=== PATIENT | male | born 1950 | race Caucasian/White ===

== ENCOUNTER 2019-03-26 12:37 | Inpatient (IN) ==
--- NOTE | 2019-03-26 15:49 | Cardiology Consult Note ---
Date of Encounter: 03/26/19 Time of Encounter: 15:46 Assessment and Plan (1) NSTEMI (non-ST elevated myocardial infarction) Current Visit: Yes Status: Acute Non-ST elevation myocardial infarction the setting of decompensated congestive heart failure possibly ischemic in origin. In the setting of history of coronary artery disease I do believe an LHC is reasonable once patient is euvolemic and stable. We will continue gentle diuresis and start the patient on IV heparin per ACS protocol. We will also try to obtain records of previous PCI's from outside hospital. EKG shows nonspecific changes. Will obtain echocardiogram to evaluate for structural heart abnormalities. Discussion w patient/family: The assessment and plan as outlined above was discussed with the patient and/or family members who expressed understanding and agreement. All questions were answered. Thank you for involving us in the care of your patient. Please call with any questions. History of Present Illness Consult date: 03/26/19 Consult reason: Chest Pain Chief complaint: Cant breath History of present illness: Mr. Sepulveda is a 68 year old male with multiple cardiac risk factors and comorbidities presents to the outside hospital with chest pain after significant shortness of breath and a feeling of unwellness. Patient apparently quit smoking for a few days in binged on nicotine smoking a full pack and a very short period of time states felt bad after that until he arrived to the emergency department. He describes significant shortness of breath above his baseline after smoking a full pack of cigarettes with some chest tightness. There is left pectoral type chest pain nonradiating without any associated symptoms. This improved and resolved upon receiving a breathing treatment which also helped his hypoxemia improve currently on room air patient's at 82%. Patient has an elevated BNP noted on an outside hospital of 2500 as well as a troponin of 2.5 otherwise unremarkable labs. He has a history of previous TX and 4 stents at an outside hospital. Currently he is resting comfortably denies any chest pain, shortness breath, dyspnea on exertion, orthopnea, PND, presyncope or syncope Past Med Surg Social Fam HX - Past Medical History Medical history: CHF, COPD, coronary artery disease, hyperlipidemia, hypertension Psychiatric history: anxiety - Past Surgical History Surgical History: no surgical history - Social History Smoking Status: Current every day smoker Smokeless Tobacco Status: No Alcohol use: rarely Drug use: none Medications and Allergies Allergy/AdvReac Type Severity Reaction Status Date / Time codeine Allergy Swelling Verified 03/05/19 11:15 of the Eye All Systems Review: The remainder of the systems were reviewed and are negative Physical Examination Vital Signs, Last 4 Hours Pulse Resp BP Pulse Ox 03/26/19 15:00 53 03/26/19 14:00 52 22 157/77 93 03/26/19 13:56 18 92 General: Conversant, No Apparent Distress HEENT: Atraumatic, Normocephaly, Mucus Membranes Moist Neck: No JVD, Normal carotid pulses Cardiac: Reg Rate and Rhythm, Normal S1 and S2, No Murmur Lungs: Normal Breath Sounds (Diminished air entry bibasilar), No Wheeze, Rales, Rhonchi Neuro: Alert and responsive, No focal deficits noted Abdomen: Soft, Non-Tender Skin: No rashes noted on visualized skin Musculoskeletal: No Chest Wall Tenderness Extremities: No Clubbing, No Cyanosis, No Edema, Normal Pulses Consult Discharge Plan - Plan Referrals: NONE,PCP [Primary Care Provider] -
[2019-03-26] MEDS ORDERED: *HR* Heparin 5,000 UNIT/ML VIAL IVP PRN (16:10)
--- NOTE | 2019-03-26 16:29 | Internal Med History&Physical ---
<Chrystal Pollock - Last Filed: 03/26/19 18:19> Date of Encounter: 03/26/19 Internal Medicine - H&P: HPI History of present illness: Mr. Sepulveda is a 68 year old male Internal Medicine - H&P: Meds ALPRAZolam [Xanax 1 MG Tablet] 1 mg PO TID PRN 03/26/19 [History] Amlodipine Besylate 10 mg PO DAILY 03/26/19 [History] Atenolol [Tenormin] 50 mg PO BID 03/26/19 [History] Cilostazol [Pletal] 100 mg PO BID 03/26/19 [History] Lisinopril [Zestril] 20 mg PO DAILY 03/26/19 [History] Rosuvastatin Calcium 40 mg PO DAILY 03/26/19 [History] Allergy/AdvReac Type Severity Reaction Status Date / Time codeine Allergy Swelling Verified 03/26/19 17:13 of the Eye All Systems PM: A 10-system review of systems was performed and is negative for pertinent findings except as documented above in the HPI. - Constitutional Vitals: Temp Pulse Resp BP Pulse Ox 97.5 F L 48 15 150/76 93 03/26/19 16:00 03/26/19 17:26 03/26/19 17:26 03/26/19 17:26 03/26/19 17:26 Internal Med - H&P Results - Labs CBC & Chem 7: 03/26/19 16:31 03/26/19 16:30 Labs: Short CBC 03/26/19 Range/Units 16:31 WBC 7.6 (4.3-11.1) K/mcL Hgb 16.4 (12.9-16.9) g/dL Hct 52.5 H (37.5-50.1) % Plt Count 131 L (140-400) K/mcL Neutrophils # 6.8 (1.6-8.9) K/mcL BMP 03/26/19 16:30 Sodium 139 Potassium 4.4 Chloride 99 Carbon Dioxide 33 H BUN 15 Creatinine 0.78 Glucose 172 H Calcium 8.9 Cardiac Enzymes 03/26/19 Range/Units 16:30 Troponin I 0.87 H* (< 0.04) ng/mL - Time Spent With Patient Total time spent is greater than 50% in coordination of care (as documented) at patient's floor/unit and/or counseling patient: - Attending Attestation I examined this patient and my medical decision-making was reviewed with the Resident Physician. I agree with the documented findings, disposition and treatment plan as described except to the extent set forth below. Family history reviewed and non-contributory. <Espino,Faraaz - Last Filed: 03/26/19 19:57> Date of Encounter: 03/26/19 Time of Encounter: 16:29 Internal Medicine - H&P: HPI Chief complaint: Chest Tightness Admitted From: Hospital to Hospital Transfer Plans for Post Hospital Care: Home History of present illness: Mr. Sepulveda is a 68 year old male with past medical history significant for CHF, CAD status post 4 stents, COPD, hypertension, hyperlipidemia who presents today complaining of substernal chest pain that began early this morning. Patient notes that early this morning he started feeling severe chest pain in the center of his chest "right where his heart sits at" and shortness of breath. Notes the pain did not radiate to his arm to his next to his jaw. He denied any headache, blurry vision, palpitations associated with chest pain. States that he has not felt anything similar to this in a long time. He does have a history of 2 heart attacks in 1998 and 2000, and received 2 stents in 1998 and 2 stents in 2000. Notes that he did take Plavix for 10 years, but was taken off by his PCP. Patient initially presented to [facility] emergency department. On arrival, patient was complaining of shortness of breath and chest pain. - Initial vitals showed BP = 192/93, temp = 98.7, HR = 96, respirations = 30. Initial oxygen saturation = 54%. Patient was immediately placed on nonrebreather mask at 15 L. - Initial troponin = 2.063. EKG did show T-wave inversions in lead 2, 3, aVF - BNP = 2925 - D-dimer = 2513 - Labwork otherwise within normal limits - Patient was given Solu-Medrol, duo nebs, kept on 15 L nonrebreather mask for COPD exacerbation. Patient was started on heparin drip due to NSTEMI. He was also given dose of IV Lasix to lower extremity swelling. At time of my examination, patient is resting comfortably at bedside in no acute distress. States that he currently does not have any chest pain, and he is breathing comfortably on BiPAP. Vitals stable. Oxygen saturation appropriate on BiPAP. Patient will be admitted to hospitalist service. Plan for left heart catheterization tomorrow morning. PCP: Dr. Rudd (Anita) Past Med Surg Social Fam HX - Past Medical History Attestation: Yes The following information was validated with the patient. Source: patient, old records reviewed Medical history: CHF, COPD, coronary artery disease, hyperlipidemia, hyp ertension Psychiatric history: anxiety - Past Surgical History Surgical History: no surgical history, other Additional surgical history: History of left heart catheterization in the past with 4 stents placed - Social History Smoking Status: Current every day smoker Smokeless Tobacco Status: No Alcohol use: rarely Drug use: none All Systems PM: A 10-system review of systems was performed and is negative for pertinent findings except as documented above in the HPI. - Constitutional Constitutional: fatigue, lethargy, malaise, no anorexia, no chills, no fever(s), no falls, no night sweats, no weakness, no weight gain, no weight loss - EENT Eyes: no blurry vision, no change in vision, no photophobia Nose, mouth and throat: no dysphagia, no facial pain, no neck pain - Cardiovascular Cardiovascular ROS IM: chest pain, edema, no diaphoresis, no dyspnea, no irregular heart rhythm, no lightheadedness, no palpitations, no syncope - Respiratory Respiratory: dyspnea, wheezing, no cough, no chest congestion - Gastrointestinal Gastrointestinal: bloating, no abdominal pain, no constipation, no diarrhea, no heartburn, no loose stools, no melena, no nausea, no vomiting - Genitourinary Genitourinary ROS male: no dysuria - Musculoskeletal Musculoskeletal ROS IM: no arthralgias, no neck pain, no numbness, no tingling - Integumentary Integumentary IM: no rash - Neurological Neurological ROS: no confusion, no dizziness, no headache(s), no loss of vision, no memory loss, no numbness, no paresthesias, no tingling, no weakness - Psychiatric Psychiatric: anxiety, no behavioral changes, no confusion, no depression - Endocrine Endocrine IM: fatigue - Hematologic/Lymphatic Hematologic/Lymphatic: no easy bleeding, no easy bruising - Constitutional Vitals: Temp Pulse Resp BP Pulse Ox 97.5 F L 49 14 150/76 93 03/26/19 16:00 03/26/19 16:00 03/26/19 16:00 03/26/19 16:00 03/26/19 16:00 General appearance: Present: cooperative, A&O X 3, pleasant, obese, answers questions appropriately Exam: Pleasant appearing 68-year-old male resting comfortably at bedside on BiPAP in no acute distress - Head Head exam: Present: atraumatic, normal inspection, normocephalic - Eye Eye exam: Present: EOMI - ENT ENT exam: Present: mucous membranes moist, normal exam - Neck Neck exam general surgery: Present: full ROM, normal inspection, supple, trachea midline - Respiratory Respiratory exam: Present: prolonged expiratory phase, wheezes. Absent: rales, respiratory distress, rhonchi, stridor Additional comments: Diffuse bilateral expiratory wheezes - Cardiovascular Cardiovascular exam: Present: bradycardia, +S1, +S2. Absent: irregular rhythm, systolic murmur - GI/Abdominal GI/Abdominal exam: Present: distended, normal bowel sounds, soft, no peritoneal signs. Absent: firm, guarding, rebound, rigid - Extremities Exam Extremities exam: Present: full ROM, normal capillary refill, normal inspection, pedal edema, warm, radial pulses palpable and symmetrical. Absent: tenderness Additional comments: 1+ pedal edema bilaterally - Neurological Exam Neurological exam: Present: alert, CN II-XII intact, oriented X3, no focal deficits - Psychiatric Psychiatric exam: Present: normal affect, normal mood Internal Med - H&P Results - Labs CBC & Chem 7: 03/26/19 16:31 03/26/19 16:30 - Assessment and Plan (1) NSTEMI (non-ST elevated myocardial infarction) Current Visit: Yes Status: Acute Assessment and plan: Mr. Sepulveda is a 68 year old male with past medical history significant for CHF, CAD status post 4 stents, COPD, hypertension, hyperlipidemia who presents today complaining of substernal chest pain that began early this morning. - Pain was nonradiating, and associated with shortness of breath - History of 4 stents placed about 20 years ago; currently not on any anticoagulation - Initial vitals in the ED were notable for significantly elevated blood pressure, respirations = 30 respiratory, initial oxygen saturation = 54%. Patient was immediately started on 15 L nonrebreather mask - Troponin = 2.063 - EKG = T wave inversions noted in lead 2 and 3 and aVF - BNP = 2925 - D-dimer = 2513 - Patient was given dose of aspirin and started on heparin drip - Repeat troponin = 0.87 => trending downward PLAN: - Cardiology is on board. Recommendations are appreciated - Plan for left heart catheterization tomorrow morning - Continue heparin drip - Troponins trending downward. We will stop trending at this time - Follow up echocardiogram - We will restart home hypertension and hyperlipidemia medications - Continue to monitor for signs and symptoms of chest pain - Continuous cardiac monitoring, monitoring of O2 saturation, monitoring of vital signs - Cardiac diet; patient will be nothing by mouth at midnight prior to procedure tomorrow (2) COPD exacerbation Current Visit: Yes Status: Acute Assessment and plan: Patient has history of COPD - Pulmonary function tests done on 03/05/19 showed obstructive pattern - Additionally patient has never day smoker - States that he does use an inhaler at home, but does not remember which - Otherwise is not on home oxygen - Initial presentation in the ED at [facility] emergency department, showed patient with O2 saturation = 54%. Patient was immediately started on 15 L nonreb reather mask. O2 saturation improved. - Patient additionally given 125 mg of Solu-Medrol and DuoNeb breathing treatment - Patient currently resting comfortably on BiPAP. O2 sats are appropriate. - Patient noted to have diffuse bilateral wheezes on exam. No rales, rhonchi noted. PLAN: - We will continue with Solu-Medrol 40 mg twice a day - Continue DuoNeb's every 6 hours - Monitor O2 saturation; monitor for worsening respiratory distress - Continue with BiPAP when necessary and overnight - Encourage smoking cessation (3) Congestive heart failure Current Visit: Yes Status: Acute Assessment and plan: Patient notes history of CHF - Has history of 2 MIs in the past status post 4 stents - No recent echocardiogram within our records. We will repeat echocardiogram - Notes bilateral lower extremity edema - BNP = 2925 - Given dose of Lasix at [facility] ED PLAN: - Cardiology on board. Appreciate recommendations - Follow up repeat echocardiogram - Plan for Lasix 40 mg IV push twice a day - Monitor urine output - Strict ins and outs - Daily weights Qualifiers: Heart failure type: unspecified Heart failure chronicity: unspecified Qualified Code(s): I50.9 - Heart failure, unspecified (4) Hypertension Current Visit: Yes Status: Acute Assessment and plan: Patient has history of hypertension, managed with amlodipine and atenolol - BP is elevated on presentation - However heart rates continuing to be in the low 50s - Patient does state that he tends to have low heart rate PLAN: - We will continue home hypertension medications. - We will hold atenolol with heart rate less than 60 - Vasotec PRN Qualifiers: Hypertension type: essential hypertension Qualified Code(s): I10 - Essential (primary) hypertension (5) Hyperlipidemia Current Visit: Yes Status: Acute Assessment and plan: History of hyperlipidemia PLAN: - Continue rosuvastatin 40 mg daily Qualifiers: Hyperlipidemia type: unspecified Qualified Code(s): E78.5 - Hyperlipidemia, unspecified (6) Pre-diabetes Current Visit: Yes Status: Acute Assessment and plan: Patient denies ever been formally diagnosed with diabetes - Currently not on any medication PLAN: - Given elevated sugars on presentation, we will initiate low-dose sliding scale - Accu-Cheks before meals and at bedtime - We will discuss starting by mouth medication at time of discharge (7) Tobacco abuse Current Visit: Yes Status: Acute Assessment and plan: Patient is a daily smoker PLAN: - Encourage smoking cessation (8) DVT prophylaxis Current Visit: Yes Status: Acute Assessment and plan: PLAN: - Currently on a heparin drip - Time Spent With Patient Total time spent is greater than 50% in coordination of care (as documented) at patient's floor/unit and/or counseling patient: 25 - 35 minutes
[2019-03-26 16:47] LABS: Basophils % 0.3 %; Hematocrit 52.5 % (37.5-50.1); Hemoglobin 16.4 g/dL (12.9-16.9); Immature Granulocytes % 0.9 % (0-4); Lymphocytes # 0.6 K/mcL (0.6-4.6); Lymphocytes % 7.3 %; Mean Corpuscular HGB Conc 31.2 g/dL (31.6-35.5); Mean Corpuscular Hemoglobin 29.2 pg (28.0-33.3); Mean Corpuscular Volume 93.4 fL (83.0-100.0); Mean Platelet Volume 10.8 fL (9.4-12.4); Monocytes # 0.1 K/mcL (0.0-1.3); Monocytes % 1.5 %; Neutrophils # 6.8 K/mcL (1.6-8.9); Nucleated Red Blood Cells 0.3 /100 WBC (0); Platelet Count 131 K/mcL (140-400); Red Blood Count 5.62 M/mcL (4.19-5.50); Red Cell Distribution Width 14.9 % (11.5-14.5); White Blood Count 7.6 K/mcL (4.3-11.1)
[2019-03-26] MEDS ORDERED: D5% in Water 1,000 ML IVC PRN (16:54)
[2019-03-26] MEDS ORDERED: *HR* Dextrose 50 % in Water (Syg) 50 ML SYRINGE IVP PRN (16:54)
[2019-03-26] MEDS ORDERED: Dextrose Gel 15 GM/37.5 ML TUBE PO PRN ×2 (16:54)
[2019-03-26 16:55] LABS: Heparin anti-factor XA UFH 0.33 IU/mL (0.30-0.70); INR 1.1; Prothrombin Time 12.1 Seconds (9.4-12.1)
[2019-03-26 17:09] LABS: BUN/Creatinine Ratio 19 (6-26); Blood Urea Nitrogen 15 mg/dL (8-23); Calcium 8.9 mg/dL (8.6-10.3); Carbon Dioxide 33 mEq/L (23-29); Chloride 99 mEq/L (98-107); Creatine Kinase 108 Units/L (30-223); Glucose 172 mg/dL (70-105); Magnesium 1.9 mg/dL (1.6-2.6); Osmolality,Calculated 293 (280-300); Potassium 4.4 mEq/L (3.5-5.1); Sodium 139 mEq/L (136-145); eGFR For African Americans > 60 (> 60); eGFR For Non-African Americans > 60 (> 60)
[2019-03-26] MEDS ORDERED: Naloxone 0.4 MG/ML INJ IVP PRN (17:19)
[2019-03-26 17:26] LABS: Troponin I 0.87 ng/mL (< 0.04)
[2019-03-26 17:46] LABS: Chol/HDL Ratio 3.1 (0-4.9); Cholesterol 116 mg/dL (< 200); HDL Cholesterol 37 mg/dL (40-59); LDL Cholesterol,Calculated 67 mg/dL (0-99); Triglycerides 62 mg/dL (< 150)
[2019-03-26] MEDS: Heparin 25,000 UNIT/250 ML D5W 25,000 UNIT/250 ML IV.SOLN IVC SCH (18:10)
[2019-03-26] MEDS: MethylPREDNISolone 40 MG/ML VIAL IVP SCH (18:13)
[2019-03-26] MEDS: Insulin LISPRO 300 UNITS/3 ML VIAL SQ SCH (19:42)
[2019-03-26] MEDS ORDERED: Furosemide 20 MG/2 ML VIAL IVP ONE (19:55)
[2019-03-26] MEDS: Ipratropium/Albuterol Neb 3 ML IH SCH (22:20)
[2019-03-26] MEDS: *HR* Heparin 5,000 UNIT/ML VIAL IVP PRN (23:47)
[2019-03-27] MEDS: Ipratropium/Albuterol Neb 3 ML IH SCH ×4 (04:15→22:34)
[2019-03-27 05:16] LABS: Basophils % 0.3 %; Hemoglobin 16.6 g/dL (12.9-16.9); Immature Granulocytes % 0.8 % (0-4); Lymphocytes # 0.9 K/mcL (0.6-4.6); Lymphocytes % 12.1 %; Mean Corpuscular HGB Conc 31.3 g/dL (31.6-35.5); Mean Corpuscular Hemoglobin 29.4 pg (28.0-33.3); Mean Corpuscular Volume 93.8 fL (83.0-100.0); Mean Platelet Volume 11.6 fL (9.4-12.4); Monocytes # 0.4 K/mcL (0.0-1.3); Monocytes % 5.8 %; Neutrophils # 5.9 K/mcL (1.6-8.9); Platelet Count 114 K/mcL (140-400); Red Blood Count 5.65 M/mcL (4.19-5.50); Red Cell Distribution Width 14.6 % (11.5-14.5); White Blood Count 7.3 K/mcL (4.3-11.1)
[2019-03-27 05:30] LABS: BUN/Creatinine Ratio 22 (6-26); Blood Urea Nitrogen 18 mg/dL (8-23); Calcium 8.9 mg/dL (8.6-10.3); Carbon Dioxide 34 mEq/L (23-29); Chloride 99 mEq/L (98-107); Glucose 194 mg/dL (70-105); Osmolality,Calculated 295 (280-300); Potassium 4.1 mEq/L (3.5-5.1); Sodium 139 mEq/L (136-145); eGFR For African Americans > 60 (> 60); eGFR For Non-African Americans > 60 (> 60)
[2019-03-27] MEDS: MethylPREDNISolone 40 MG/ML VIAL IVP SCH ×2 (06:35→17:21)
[2019-03-27] MEDS: Furosemide 40 MG/4 ML VIAL IVP SCH ×2 (08:05→17:21)
[2019-03-27] MEDS: amLODIPine 5 MG TABLET PO SCH (08:05)
[2019-03-27] MEDS: Insulin LISPRO 300 UNITS/3 ML VIAL SQ SCH ×4 (08:24→21:24)
[2019-03-27] MEDS: ALPRAZolam 1 MG TABLET PO PRN ×2 (08:24→22:13)
[2019-03-27 08:29] LABS: Estimated Average Glucose 148 mg/dl; Hemoglobin A1C 6.8 %
[2019-03-27] MEDS ORDERED: Lisinopril 20 MG TABLET PO SCH (09:00)
--- NOTE | 2019-03-27 12:13 | Internal Med Progress Note ---
<Espino,Faraaz - Last Filed: 03/27/19 17:30> Hospitalist Progress Note - Encounter Date of Encounter: 03/27/19 Time of Encounter: 12:13 - Subjective Interval History: Patient seen and examined at bedside this morning. States that he is comfortable and in no acute distress. He denies any headache, blurry vision, chest pain, palpitations, difficulty breathing, wheezing, abdominal pain. He notes that since he has been in the hospital, he has had no complaints and has been feeling better. Vitals remained hemodynamically stable. O2 saturations appropriate on 4 L oxygen via nasal cannula. Per cardiology, plan to proceed with left heart catheterization with improving respiratory status. They will most likely proceed on Saturday. - Exam Vitals: Temp Pulse Resp BP Pulse Ox 97.9 F 51 18 152/91 91 03/27/19 11:37 03/27/19 09:00 03/27/19 10:41 03/27/19 09:00 03/27/19 10:41 Exam: GEN: Pleasant appearing 68-year-old male resting comfortably in bed. Vitals stable. No acute distress. AAOx3 HEENT: Atraumatic, Normocephalic, PERRLA, EOMI NECK: Supple, no lymphadenopathy, no JVD CARDIAC: RRR, s1 and s2 present, no murmurs, rubs, gallops PULM: Mild diffuse wheezes bilaterally. not in respiratory distress, no rales, crackles, rhonchi ABD: Soft, non-tender, non-distended, no guarding or rebound tenderness. Bowel sounds present EXT: Mild 1+ pitting edema at the feet and ankles. No calf tenderness, cyanosis, clubbing NEURO: CN 2-12 grossly intact. No focal neurologic deficits. Follows commands PSYCH: Appropriate mood and affect - Assessment and Plan (1) NSTEMI (non-ST elevated myocardial infarction) Current Visit: Yes Status: Acute Assessment and Plan: Mr. Sepulveda is a 68 year old male with past medical history significant for CHF, CAD status post 4 stents, COPD, hypertension, hyperlipidemia who presents today complaining of substernal chest pain that began early this morning. - Pain was nonradiating, and associated with shortness of breath - History of 4 stents placed about 20 years ago; currently not on any anticoagulation - Initial vitals in the ED were notable for significantly elevated blood pressure, respirations = 30 respiratory, initial oxygen saturation = 54%. P atient was immediately started on 15 L nonrebreather mask - Troponin = 2.063 - EKG = T wave inversions noted in lead 2 and 3 and aVF - BNP = 2925 - D-dimer = 2513 - Patient was given dose of aspirin and started on heparin drip - Repeat troponin = 0.87 => 0.68 => trending downward PLAN: - Cardiology is on board. Recommendations are appreciated - Per cardiology, plan for left heart catheterization likely early next week - Continue heparin drip - Follow up echocardiogram - We will restart home hypertension and hyperlipidemia medications - Continue to monitor for signs and symptoms of chest pain - Continuous cardiac monitoring, monitoring of O2 saturation, monitoring of vital signs - Cardiac diet (2) COPD exacerbation Current Visit: Yes Status: Acute Assessment and Plan: Patient has history of COPD - Pulmonary function tests done on 03/05/19 showed obstructive pattern - Additionally patient is an day smoker; states he attempted to quit 2 weeks ago, but notes that one week ago he smoked nearly a whole pack of cigarettes must not 24 hours. - States that he does use an inhaler at home, but does not remember which - Otherwise is not on home oxygen - Initial presentation in the ED at [facility] emergency department, showed patient with O2 saturation = 54%. Patient was immediately started on 15 L nonrebreather mask. O2 saturation improved. - Patient additionally given 125 mg of Solu-Medrol and DuoNeb breathing treatment - Patient currently resting comfortably on BiPAP. O2 sats are appropriate. - Improving progress process on exam today. Patient is stable on 4 L oxygen via nasal cannula. Mild bilateral wheezes on exam PLAN: - We will continue with Solu-Medrol 40 mg twice a day - Continue DuoNeb's every 6 hours - Monitor O2 saturation; monitor for worsening respiratory distress - Continue with BiPAP when necessary and overnight - Encourage smoking cessation (3) Congestive heart failure Current Visit: Yes Status: Acute Assessment and Plan: Patient notes history of CHF - Has history of 2 MIs in the past status post 4 stents - No recent echocardiogram within our records. We will repeat echocardiogram - Notes bilateral lower extremity edema - BNP = 2925; Repeat = 594 this AM - Given dose of Lasix at [facility] ED PLAN: - Cardiology on board. Appreciate recommendations - Follow up repeat echocardiogram - Plan for Lasix 40 mg IV push twice a day - Monitor urine output - Strict ins and outs - Daily weights (4) Hypertension Current Visit: Yes Status: Acute Assessment and Plan: Patient has history of hypertension, managed with amlodipine and atenolol - BP is elevated on presentation - However heart rates continuing to be in the low 50s - Patient does state that he tends to have low heart rate PLAN: - We will continue home hypertension medications. - We will hold atenolol with heart rate less than 60 - Vasotec PRN (5) Hyperlipidemia Current Visit: Yes Status: Acute Assessment and Plan: History of hyperlipidemia PLAN: - Continue rosuvastatin 40 mg daily (6) Pre-diabetes Current Visit: Yes Status: Acute Assessment and Plan: Patient denies ever been formally diagnosed with diabetes - Currently not on any medication - HbA1c = 6.8 PLAN: - Given elevated sugars on presentation, we will initiate low-dose sliding scale - Accu-Cheks before meals and at bedtime - We will discuss starting by mouth medication at time of discharge (7) Tobacco abuse Current Visit: Yes Status: Acute Assessment and Plan: Patient is a daily smoker PLAN: - Encourage smoking cessation (8) DVT prophylaxis Current Visit: Yes Status: Acute Assessment and Plan: PLAN: - Currently on a heparin drip DVT Prophylaxis: Heparin drip - Time Spent with Patient Total time spent is greater than 50% in coordination of care (as documented) at patient's floor/unit and/or counseling patient: 25 - 35 minutes Plan of Care Discussed with: patient Internal Medicine: Result - Labs CBC & Chem 7: 03/27/19 04:47 03/27/19 04:47 Labs: Short CBC 03/26/19 03/27/19 Range/Units 16:31 04:47 WBC 7.6 7.3 (4.3-11.1) K/mcL Hgb 16.4 16.6 (12.9-16.9) g/dL Hct 52.5 H 53.0 H (37.5-50.1) % Plt Count 131 L 114 L (140-400) K/mcL Neutrophils # 6.8 5.9 (1.6-8.9) K/mcL BMP 03/26/19 03/27/19 16:30 04:47 Sodium 139 139 Potassium 4.4 4.1 Chloride 99 99 Carbon Dioxide 33 H 34 H BUN 15 18 Creatinine 0.78 0.81 Glucose 172 H 194 H Calcium 8.9 8.9 Cardiac Enzymes 03/26/19 03/27/19 Range/Units 16:30 09:27 Troponin I 0.87 H* 0.68 H* (< 0.04) ng/mL - ABG Interpretation ABG results: PT/INR, D-dimer PT 12.1 Seconds (9.4-12.1) 03/26/19 16:31 Consult Discharge Plan - Plan Referrals: NONE,PCP [Primary Care Provider] - <Chrystal Pollock - Last Filed: 03/27/19 19:10> Hospitalist Progress Note - Encounter Date of Encounter: 03/27/19 - Exam Vitals: Temp Pulse Resp BP Pulse Ox 97.9 F 87 18 115/36 93 03/27/19 11:37 03/27/19 17:00 03/27/19 17:00 03/27/19 17:00 03/27/19 17:00 - Time Spent with Patient Total time spent is greater than 50% in coordination of care (as documented) at patient's floor/unit and/or counseling patient: Internal Medicine: Result - Labs CBC & Chem 7: 03/27/19 04:47 03/27/19 04:47 Labs: Short CBC 03/27/19 Range/Units 04:47 WBC 7.3 (4.3-11.1) K/mcL Hgb 16.6 (12.9-16.9) g/dL Hct 53.0 H (37.5-50.1) % Plt Count 114 L (140-400) K/mcL Neutrophils # 5.9 (1.6-8.9) K/mcL BMP 03/27/19 04:47 Sodium 139 Potassium 4.1 Chloride 99 Carbon Dioxide 34 H BUN 18 Creatinine 0.81 Glucose 194 H Calcium 8.9 Cardiac Enzymes 03/27/19 Range/Units 09:27 Troponin I 0.68 H* (< 0.04) ng/mL - ABG Interpretation ABG results: PT/INR, D-dimer PT 12.1 Seconds (9.4-12.1) 03/26/19 16:31 - Attending Attestation I examined this patient and my medical decision-making was reviewed with the Resident Physician. I agree with the documented findings, disposition and treatment plan as described except to the extent set forth below. <Rani Espino - Last Filed: 03/27/19 17:30> (3) Congestive heart failure Qualifiers: Heart failure type: unspecified Heart failure chronicity: unspecified Qualified Code(s): I50.9 - Heart failure, unspecified (4) Hypertension Qualifiers: Hypertension type: essential hypertension Qualified Code(s): I10 - Essential (primary) hypertension (5) Hyperlipidemia Qualifiers: Hyperlipidemia type: unspecified Qualified Code(s): E78.5 - Hyperlipidemia, u nspecified
--- NOTE | 2019-03-27 12:35 | Cardiology Progress Note ---
Date of Encounter: 03/27/19 Time of Encounter: 08:30 Assessment and Plan (1) NSTEMI (non-ST elevated myocardial infarction) Current Visit: Yes Status: Acute Non-ST elevation myocardial infarction the setting of decompensated congestive heart failure and possibe ischemia. Troponin peaked at 2.5 at out-side hospital and trending down. H/o CAD s/p TX and 4 cardiac stents placed at outside hospital 2 years ago. Similar presentation. EKG shows SR with nonspecific changes. TTE pending. Continue asa, statin, bb, and heparin gtt. LHC R/B/A was discussed. Plan to proceed when respiratory status improves. Possibly Saturday. (2) Congestive heart failure Current Visit: Yes Status: Acute Reports history of CHF. EF unknown. Presents with acute on chronic CHF. BNP at OSH 2500. C/o abdominal bloating and orthopnea. TTE pending. SOB multifactoral in setting of severe COPD. Patient taken off bipap this morning and now on 4L O2. Continue IV diuresis. Strict I&O and daily weights. Low sodium diet. Net negative 1334 ml. Qualifiers: Heart failure type: unspecified Heart failure chronicity: unspecified Qualified Code(s): I50.9 - Heart failure, unspecified Discussion w patient/family: The assessment and plan as outlined above was discussed with the patient and/or family members who expressed understanding and agreement. All questions were answered. Thank you for involving us in the care of your patient. Please call with any questions. Subjective Principal diagnosis: CHF, elevated troponin Interval history: Pt states SOB has improved and he is requiring less oxygen. Continues to have abdominal bloating. Objective Vital Signs, Last 4 Hours Temp Pulse Resp BP Pulse Ox 03/27/19 11:37 97.9 F 03/27/19 11:13 54 16 139/77 92 03/27/19 10:41 18 91 03/27/19 09:00 51 16 152/91 90 General: Conversant, No Apparent Distress HEENT: Atraumatic, Normocephaly, Mucus Membranes Moist Neck: No JVD, Normal carotid pulses Cardiac: Reg Rate and Rhythm, Normal S1 and S2, No Murmur Lungs: Other (Respirations easy on 4L, expiratory wheezes thoughout with diminished base) Neuro: Alert and responsive, No focal deficits noted Abdomen: Soft, Non-Tender, Other (distendded) Skin: No rashes noted on visualized skin Musculoskeletal: No Chest Wall Tenderness Extremities: No Clubbing, No Cyanosis, No Edema, Normal Pulses Results 03/27/19 04:47 03/27/19 04:47 Lab Results 03/26/19 03/26/19 03/26/19 16:30 16:30 16:31 WBC 7.6 Hgb 16.4 Hct 52.5 H Plt Count 131 L INR Sodium 139 Potassium 4.4 Chloride 99 Carbon Dioxide 33 H BUN 15 Creatinine 0.78 Glucose 172 H Calcium 8.9 Magnesium 1.9 Troponin I 0.87 H* B-Natriuretic Peptide 594 H 03/26/19 03/27/19 03/27/19 16:31 04:47 04:47 WBC 7.3 Hgb 16.6 Hct 53.0 H Plt Count 114 L INR 1.1 Sodium 139 Potassium 4.1 Chloride 99 Carbon Dioxide 34 H BUN 18 Creatinine 0.81 Glucose 194 H Calcium 8.9 Magnesium Troponin I B-Natriuretic Peptide 03/27/19 09:27 WBC Hgb Hct Plt Count INR Sodium Potassium Chloride Carbon Dioxide BUN Creatinine Glucose Calcium Magnesium Troponin I 0.68 H* B-Natriuretic Peptide - Imaging and Cardiology Echo: report reviewed - EKG Interpretation EKG results cardiology: personally reviewed Consult Discharge Plan - Plan Referrals: NONE,PCP [Primary Care Provider] -
[2019-03-27] MEDS: Aspirin Enteric Coated 81 MG Tablet PO SCH (14:24)
[2019-03-27] MEDS: Heparin 25,000 UNIT/250 ML D5W 25,000 UNIT/250 ML IV.SOLN IVC SCH (17:28)
[2019-03-28] MEDS: Ipratropium/Albuterol Neb 3 ML IH SCH ×4 (04:09→22:27)
[2019-03-28 04:12] LABS: Basophils % 0.1 %; Hematocrit 50.2 % (37.5-50.1); Hemoglobin 15.9 g/dL (12.9-16.9); Immature Granulocytes % 0.6 % (0-4); Lymphocytes # 0.8 K/mcL (0.6-4.6); Lymphocytes % 5.3 %; Mean Corpuscular HGB Conc 31.7 g/dL (31.6-35.5); Mean Corpuscular Hemoglobin 29.2 pg (28.0-33.3); Mean Corpuscular Volume 92.1 fL (83.0-100.0); Mean Platelet Volume 10.5 fL (9.4-12.4); Monocytes # 0.7 K/mcL (0.0-1.3); Monocytes % 4.9 %; Platelet Count 146 K/mcL (140-400); Red Blood Count 5.45 M/mcL (4.19-5.50); Red Cell Distribution Width 14.7 % (11.5-14.5); Segmented Neutrophils % 89.1 %
[2019-03-28 04:19] LABS: White Blood Count 14.6 K/mcL (4.3-11.1)
[2019-03-28 04:29] LABS: BUN/Creatinine Ratio 22 (6-26); Blood Urea Nitrogen 24 mg/dL (8-23); Calcium 8.8 mg/dL (8.6-10.3); Carbon Dioxide 37 mEq/L (23-29); Chloride 94 mEq/L (98-107); Glucose 180 mg/dL (70-105); Osmolality,Calculated 299 (280-300); Potassium 3.7 mEq/L (3.5-5.1); Sodium 140 mEq/L (136-145); eGFR For African Americans > 60 (> 60); eGFR For Non-African Americans > 60 (> 60)
[2019-03-28] MEDS: MethylPREDNISolone 40 MG/ML VIAL IVP SCH ×2 (05:06→16:54)
[2019-03-28] MEDS: Insulin LISPRO 300 UNITS/3 ML VIAL SQ SCH ×4 (08:03→20:09)
--- NOTE | 2019-03-28 08:47 | Internal Med Progress Note ---
<EspinoRani - Last Filed: 03/28/19 16:50> Hospitalist Progress Note - Encounter Date of Encounter: 03/28/19 Time of Encounter: 08:47 - Subjective Interval History: Patient was seen and examined at bedside this morning. He denies any complaints overnight, and states that he is comfortable. He is in no acute distress. Rosalind vallejo remained hemodynamically stable. He denies any headache, blurry vision, chest pain, palpitations, difficulty breathing, wheezing, abdominal pain, nausea. O2 saturations are appropriate all 4 L via nasal cannula. Per cardiology, plan to proceed with left heart catheterization early next week. - Exam Vitals: Temp Pulse Resp BP Pulse Ox 97.9 F 53 14 123/65 97 03/28/19 07:30 03/28/19 07:30 03/28/19 07:30 03/28/19 07:30 03/28/19 07:30 Exam: GEN: V this is a cousin appearing 68-year-old gentleman who is resting comfortably in bedside. Accompanied by friend who is in the room. vitals stable. No acute distress. AAOx3 HEENT: Atraumatic, Normocephalic, PERRLA, EOMI NECK: Supple, no lymphadenopathy, no JVD CARDIAC: RRR, s1 and s2 present, no murmurs, rubs, gallops PULM: Improved mild bilateral expiratory wheezes. Not in respiratory distress, no rales, crackles, rhonchi ABD: Soft, non-tender, non-distended, no guarding or rebound tenderness. Bowel sounds present EXT: No peripheral edema. No calf tenderness, cyanosis, clubbing NEURO: CN 2-12 grossly intact. No focal neurologic deficits. Follows commands PSYCH: Appropriate mood and affect - Assessment and Plan (1) NSTEMI (non-ST elevated myocardial infarction) Current Visit: Yes Status: Acute Assessment and Plan: Mr. Sepulveda is a 68 year old male with past medical history significant for CHF, CAD status post 4 stents, COPD, hypertension, hyperlipidemia who presents today complaining of substernal chest pain that began early this morning. - Pain was nonradiating, and associated with shortness of breath - History of 4 stents placed about 20 years ago; currently not on any anticoagulation - Initial vitals in the ED were notable for significantly elevated blood pressure, respirations = 30 respiratory, initial oxygen saturation = 54%. Patient was immediately started on 15 L nonrebreather mask - Troponin = 2.063 - EKG = T wave inversions noted in lead 2 and 3 and aVF - BNP = 2925 - D-dimer = 2513 - Patient was given dose of aspirin and started on heparin drip - Repeat troponin = 0.87 => 0.68 => trending downward - Echocardiogram (03/27/19): LVEF = 65%. Mild left ventricular diastolic dysfunction. Normal right ventricle. Moderately dilated left atrium. Mild aortic stenosis. Mild tricuspid regurgitation. Mild pulmonary hypertension. PLAN: - Cardiology is on board. Recommendations are appreciated - Per cardiology, plan for left heart catheterization likely early next week - Continue heparin drip - We will restart home hypertension and hyperlipidemia medications - Continue to monitor for signs and symptoms of chest pain - Continuous cardiac monitoring, monitoring of O2 saturation, monitoring of vital signs - Cardiac diet (2) COPD exacerbation Current Visit: Yes Status: Acute Assessment and Plan: Patient has history of COPD - Pulmonary function tests done on 03/05/19 showed obstructive pattern - Additionally patient is an everyday smoker; states he attempted to quit 2 weeks ago, but notes that one week ago he smoked nearly a whole pack of cigarettes over 24 hours. - States that he does use an inhaler at home, but does not remember which - Otherwise is not on home oxygen - Initial presentation in the ED at [facility] emergency department, showed patient with O2 saturation = 54%. Patient was immediately started on 15 L nonrebreather mask. O2 saturation improved. - Patient additionally given 125 mg of Solu-Medrol and DuoNeb breathing treatment - Patient currently resting comfortably on 4 L oxygen via nasal cannula. O2 sats are appropriate. - Improving progress on exam today. Patient is stable on 4 L oxygen via nasal cannula. Mild bilateral wheezes on exam. Improved from yesterday PLAN: - We will continue with Solu-Medrol 40 mg twice a day - Continue DuoNeb's every 6 hours - Monitor O2 saturation; monitor for worsening respiratory distress - Continue with BiPAP when necessary and overnight - Encourage smoking cessation (3) Congestive heart failure Current Visit: Yes Status: Acute Assessment and Plan: Patient notes history of CHF - Has history of 2 MIs in the past status post 4 stents - No recent echocardiogram within our records. We will repeat echocardiogram - Notes bilateral lower extremity edema - BNP = 2925; Repeat = 594 this AM - Given dose of Lasix at [facility] ED - Echocardiogram (03/27/19): LVEF = 65%. Mild left ventricular diastolic dysfunction. Normal right ventricle. Moderately dilated left atrium. Mild aortic stenosis. Mild tricuspid regurgitation. Mild pulmonary hypertension. PLAN: - Cardiology on board. Appreciate recommendations - Given Lasix 20 mg IV push today - Plan for Lasix 40 mg IV push daily starting tomorrow - Monitor urine output - Strict ins and outs - Daily weights - Low sodium, cardiac diet (4) Hypertension Current Visit: Yes Status: Acute Assessment and Plan: Patient has history of hypertension, managed with amlodipine and atenolol - BP is elevated on presentation - However heart rates continuing to be in the low 50s - Patient does state that he tends to have low heart rate - BP = 123/65 today PLAN: - We will continue home hypertension medications. - We will hold atenolol with heart rate less than 60 - Vasotec PRN (5) Hyperlipidemia Current Visit: Yes Status: Acute Assessment and Plan: History of hyperlipidemia - Cholesterol = 116 - Triglycerides = 62 - LDL = 67 - HDL = 37 PLAN: - Continue rosuvastatin 40 mg daily (6) Diabetes mellitus Current Visit: Yes Status: Acute Assessment and Plan: Patient denies ever been formally diagnosed with diabetes - Currently not on any medication - HbA1c = 6.8 - Blood sugar = 180 PLAN: - Given elevated sugars on presentation, we will initiate low-dose sliding scale - Accu-Cheks before meals and at bedtime - We will discuss starting by mouth medication at time of discharge (7) Tobacco abuse Current Visit: Yes Status: Acute Assessment and Plan: Patient is a daily smoker PLAN: - Encourage smoking cessation (8) DVT prophylaxis Current Visit: Yes Status: Acute Assessment and Plan: PLAN: - Currently on a heparin drip DVT Prophylaxis: Heparin drip - Time Spent with Patient Total time spent is greater than 50% in coordination of care (as documented) at patient's floor/unit and/or counseling patient: less than 15 minutes Plan of Care Discussed with: patient Internal Medicine: Result - Labs CBC & Chem 7: 03/28/19 03:57 03/28/19 03:57 Labs: Short CBC 03/28/19 Range/Units 03:57 WBC 14.6 H D (4.3-11.1) K/mcL Hgb 15.9 (12.9-16.9) g/dL Hct 50.2 H (37.5-50.1) % Plt Count 146 (140-400) K/mcL Neutrophils # 13.0 H (1.6-8.9) K/mcL BMP 03/28/19 03:57 Sodium 140 Potassium 3.7 Chloride 94 L Carbon Dioxide 37 H BUN 24 H Creatinine 1.10 Glucose 180 H Calcium 8.8 Cardiac Enzymes 03/27/19 Range/Units 09:27 Troponin I 0.68 H* (< 0.04) ng/mL - ABG Interpretation ABG results: PT/INR, D-dimer PT 12.1 Seconds (9.4-12.1) 03/26/19 16:31 Consult Discharge Plan - Plan Referrals: NONE,PCP [Primary Care Provider] - <Chrystal Pollock - Last Filed: 03/28/19 17:58> Hospitalist Progress Note - Encounter Date of Encounter: 03/28/19 - Exam Vitals: Temp Pulse Resp BP Pulse Ox 97.9 F 57 16 136/59 92 03/28/19 16:37 03/28/19 16:37 03/28/19 16:37 03/28/19 16:37 03/28/19 16:37 - Time Spent with Patient Total time spent is greater than 50% in coordination of care (as documented) at patient's floor/unit and/or counseling patient: Internal Medicine: Result - Labs CBC & Chem 7: 03/28/19 03:57 03/28/19 03:57 Labs: Short CBC 03/28/19 Range/Units 03:57 WBC 14.6 H D (4.3-11.1) K/mcL Hgb 15.9 (12.9-16.9) g/dL Hct 50.2 H (37.5-50.1) % Plt Count 146 (140-400) K/mcL Neutrophils # 13.0 H (1.6-8.9) K/mcL BMP 03/28/19 03:57 Sodium 140 Potassium 3.7 Chloride 94 L Carbon Dioxide 37 H BUN 24 H Creatinine 1.10 Glucose 180 H Calcium 8.8 - ABG Interpretation ABG results: PT/INR, D-dimer PT 12.1 Seconds (9.4-12.1) 03/26/19 16:31 - Impressions Impressions Echocardiogram 03/27/19 12:50 Impressions: LVEF 65%. Mild left ventricular diastolic dysfunction. Normal right ventricular structure and function. Moderately dilated left atrium. Mild aortic stenosis.Peak aortic velocity and mean gradient are 2.7m/s and 16 mmHg, respectively. Mild tricuspid regurgitation. Mild pulmonary hypertension.Estimated RVSP is 38 mmHg. Left Ventricular Wall Motion: Rest Echo Findings All wall segments showed normal motion. Findings: Study Quality * Technically adequate exam. ECG Findings * Normal sinus rhythm. Left Ventricle * LVEF 65%. * Normal LV chamber size, wall thickness and systolic function. * Mild left ventricular diastolic dysfunction. Right Ventricle * Normal right ventricular structure and function. Left Atrium * Moderately dilated left atrium. Right Atrium * Normal right atrial size. Aortic Valve * Mild aortic stenosis.Peak aortic velocity and mean gradient are 2.7m/s and 16 mmHg, respectively. * * No aortic regurgitation. Mitral Valve * Normal mitral valve structure. * No mitral regurgitation. * No mitral stenosis. Tricuspid Valve * Mild tricuspid regurgitation. * Mild pulmonary hypertension.Estimated RVSP is 38 mmHg. * * Estimated RA pressure is 5 mmHg. * No tricuspid stenosis. * Normal tricuspid valve structure. Pulmonic Valve * Pulmonic valve not well visualized. Aorta * Normally sized aortic root. Pericardium * The pericardium appears normal. Pulmonary Artery * Pulmonary artery not well visualized. IVC * Normal IVC dimensions and inspiratory collapse. - Attending Attestation I examined this patient and my medical decision-making was reviewed with the Resident Physician. I agree with the documented findings, disposition and treatment plan as described except to the extent set forth below. Creatinine slight increase over past two days. Hold lisinopril, decrease Lasix dose, recheck renal function in AM. 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
[2019-03-28] MEDS: amLODIPine 5 MG TABLET PO SCH (08:58)
[2019-03-28] MEDS: Aspirin Enteric Coated 81 MG Tablet PO SCH (08:58)
[2019-03-28] MEDS: Furosemide 40 MG/4 ML VIAL IVP SCH (09:08)
[2019-03-28] MEDS ORDERED: Furosemide 20 MG/2 ML VIAL IVP ONE (10:26)
--- NOTE | 2019-03-28 11:31 | Cardiology Progress Note ---
Date of Encounter: 03/28/19 Time of Encounter: 10:30 Assessment and Plan (1) NSTEMI (non-ST elevated myocardial infarction) Current Visit: Yes Status: Acute Non-ST elevation myocardial infarction the setting of decompensated congestive heart failure and possibe ischemia. Troponin peaked at 2.5 at out-side hospital and trending down. H/o CAD s/p CT and 4 cardiac stents placed at outside hospital >5 years ago. Similar presentation. EKG shows SR with nonspecific changes. TTE 03/27/19: LVEF 65%, mild LVDD, moderately dilated LA, mild , mild TR, mild PH, normal wall motion Continue heparin gtt, asa, statin, and BB. Remains CP free. Plan for [facility] with possible PCI on Saturday. Will continue to follow. (2) Congestive heart failure Current Visit: Yes Status: Acute Reports history of CHF. Presents with acute on chronic dCHF. BNP at OSH 2500. C/o abdominal bloating and orthopnea. TTE 03/27/19: LVEF 65%, mild LVDD, normal RV structure and function, moderately dilated LA, mild , mild TR, mild PH, normal wall motion. Dyspnea improved, near euvolemic upon exam. Cumulative I&O: -1100 mL Continue IV diuresis. Strict I&O and daily weights. Low sodium diet. Qualifiers: Heart failure type: diastolic Heart failure chronicity: unspecified Qualified Code(s): I50.30 - Unspecified diastolic (congestive) heart failure Discussion w patient/family: The assessment and plan as outlined above was discussed with the patient and/or family members who expressed understanding and agreement. All questions were answered. Thank you for involving us in the care of your patient. Please call with any questions. The patient will be discussed and reviewed with Dr. Mehta, changes to be made accordingly. Subjective Principal diagnosis: CHF, elevated troponin Interval history: Seen and examined. No chest pain overnight. Dyspnea improved. No complaints upon exam this AM. Objective Vital Signs, Last 4 Hours Temp Pulse Resp BP Pulse Ox 03/28/19 09:43 18 92 03/28/19 07:30 97.9 F 53 14 123/65 97 General: Conversant, No Apparent Distress HEENT: Atraumatic, Normocephaly, Mucus Membranes Moist Cardiac: Reg Rate and Rhythm, Normal S1 and S2 Lungs: Normal Breath Sounds Neuro: Alert and responsive Abdomen: Soft Skin: No rashes noted on visualized skin Musculoskeletal: No Chest Wall Tenderness Extremities: No Edema, Normal Pulses Results 03/28/19 03:57 03/28/19 03:57 Lab Results 03/28/19 03/28/19 03:57 03:57 WBC 14.6 H D Hgb 15.9 Hct 50.2 H Plt Count 146 Sodium 140 Potassium 3.7 Chloride 94 L Carbon Dioxide 37 H BUN 24 H Creatinine 1.10 Glucose 180 H Calcium 8.8 Active Medications Albuterol/Ipratropium (Duoneb) 3 ml IH [id number] MAX Stop: 09/25/19 22:01 Last Admin: 03/28/19 09:42 Dose: 3 ml Documented by: Alprazolam (Xanax) 1 mg PO TID PRN; Protocol PRN Reason: Anxiety Stop: 09/25/19 18:02 Last Admin: 03/27/19 22:13 Dose: 1 mg Documented by: Amlodipine Besylate (Norvasc) 10 mg PO DAILY MAX Stop: 09/26/19 09:01 Last Admin: 03/28/19 08:58 Dose: 10 mg Documented by: Aspirin (Aspirin Ec) 81 mg PO DAILY MAX Stop: 09/26/19 13:01 Last Admin: 03/28/19 08:58 Dose: 81 mg Documented by: Atenolol (Tenormin) 25 mg PO BID MAX Stop: 09/26/19 21:01 Last Admin: 03/28/19 08:03 Dose: Not Given Documented by: Cilostazol (Pletal) 100 mg PO BID MAX Stop: 09/25/19 21:01 Last Admin: 03/28/19 08:58 Dose: 100 mg Documented by: Dextrose/Water (Dextrose 50% (Syg)) 25 ml IVP AD PRN PRN Reason: Hypoglycemia Stop: 09/25/19 16:55 Enalaprilat (Vasotec) 0.625 mg IVP Q6H PRN PRN Reason: SEE COMMENTS Stop: 09/25/19 17:35 Furosemide (Lasix) 40 mg IVP DAILY MAX Stop: 09/28/19 09:01 Glucagon (Glucagen) 1 mg IM ONCE PRN PRN Reason: Hypoglycemia Stop: 09/25/19 16:55 Glucose (Gluctose) 15 gm PO ONCE PRN PRN Reason: Hypoglycemia Stop: 09/25/19 16:55 Glucose (Gluctose) 30 gm PO ONCE PRN PRN Reason: Hypoglycemia Stop: 09/25/19 16:55 Heparin Sodium (Porcine) (Heparin) 4,000 unit IVP Q6HR PRN PRN Reason: SEE COMMENTS Stop: 09/25/19 16:11 Heparin Sodium (Porcine) (Heparin) 2,000 unit IVP Q6H PRN PRN Reason: SEE COMMENTS Stop: 09/25/19 16:11 Last Admin: 03/26/19 23:47 Dose: 2,000 unit Documented by: Heparin Sodium/Dextrose (Heparin 25,000 Unit/250 Ml D5w) 25,000 unit in 250 mls @ 9.3 mls/hr IVC .Q24H MAX; Protocol Stop: 09/25/19 16:16 Last Admin: 03/27/19 17:28 Dose: 12.04 unit/kg/hr, 11.2 mls/hr Documented by: Dextrose (Dextrose 5%) 1,000 mls @ 100 mls/hr IVC .Q10H PRN PRN Reason: HYPOGLYCEMIA Stop: 09/25/19 16:55 Insulin Human Lispro (Humalog) 0 units SQ TIDAC MAX; Protocol Stop: 09/26/19 07:31 Last Admin: 03/28/19 08:03 Dose: Not Given Documented by: Insulin Human Lispro (Humalog) 0 units SQ HS MAX; Protocol Stop: 09/25/19 21:01 Last Admin: 03/27/19 21:24 Dose: 2 units Documented by: Methylprednisolone (Solu-Medrol) 40 mg IVP Q12HR MAX Stop: 09/25/19 18:01 Last Admin: 03/28/19 05:06 Dose: 40 mg Documented by: Naloxone HCl (Narcan) 0.4 mg IVP Q2MPRN PRN PRN Reason: SEE COMMENTS Stop: 09/25/19 17:20 Rosuvastatin Calcium (Crestor) 40 mg PO HS MAX Stop: 09/26/19 21:01 Last Admin: 03/27/19 21:22 Dose: 40 mg Documented by: - Imaging and Cardiology Echo: report reviewed - EKG Interpretation EKG results cardiology: personally reviewed Consult Discharge Plan - Plan Referrals: NONE,PCP [Primary Care Provider] -
[2019-03-28] MEDS: Heparin 25,000 UNIT/250 ML D5W 25,000 UNIT/250 ML IV.SOLN IVC SCH (17:16)
[2019-03-28] MEDS: ALPRAZolam 1 MG TABLET PO PRN (23:36)
[2019-03-29] MEDS: Ipratropium/Albuterol Neb 3 ML IH SCH ×4 (03:49→21:42)
[2019-03-29] MEDS: MethylPREDNISolone 40 MG/ML VIAL IVP SCH ×2 (05:12→17:16)
[2019-03-29 05:29] LABS: Basophils % 0.1 %; Hematocrit 49.2 % (37.5-50.1); Hemoglobin 15.8 g/dL (12.9-16.9); Immature Granulocytes % 1.1 % (0-4); Lymphocytes # 0.6 K/mcL (0.6-4.6); Lymphocytes % 4.5 %; Mean Corpuscular HGB Conc 32.1 g/dL (31.6-35.5); Mean Corpuscular Volume 90.4 fL (83.0-100.0); Mean Platelet Volume 10.9 fL (9.4-12.4); Monocytes # 0.7 K/mcL (0.0-1.3); Monocytes % 4.7 %; Neutrophils # 12.7 K/mcL (1.6-8.9); Platelet Count 128 K/mcL (140-400); Red Blood Count 5.44 M/mcL (4.19-5.50); Red Cell Distribution Width 14.6 % (11.5-14.5); Segmented Neutrophils % 89.6 %; White Blood Count 14.1 K/mcL (4.3-11.1)
[2019-03-29 05:52] LABS: BUN/Creatinine Ratio 26 (6-26); Blood Urea Nitrogen 24 mg/dL (8-23); Calcium 8.7 mg/dL (8.6-10.3); Chloride 95 mEq/L (98-107); Glucose 177 mg/dL (70-105); Magnesium 2.1 mg/dL (1.6-2.6); Osmolality,Calculated 292 (280-300); Potassium 3.9 mEq/L (3.5-5.1); Sodium 137 mEq/L (136-145); eGFR For African Americans > 60 (> 60); eGFR For Non-African Americans > 60 (> 60)
[2019-03-29] MEDS: *HR* Heparin 5,000 UNIT/ML VIAL IVP PRN (05:54)
[2019-03-29 06:22] LABS: Carbon Dioxide 34 mEq/L (23-29)
[2019-03-29] MEDS: amLODIPine 5 MG TABLET PO SCH (07:35)
[2019-03-29] MEDS: Aspirin Enteric Coated 81 MG Tablet PO SCH (07:35)
[2019-03-29] MEDS: Insulin LISPRO 300 UNITS/3 ML VIAL SQ SCH ×4 (07:36→20:32)
--- NOTE | 2019-03-29 08:02 | Internal Med Progress Note ---
<Rani Espino - Last Filed: 03/29/19 13:21> Hospitalist Progress Note - Encounter Date of Encounter: 03/29/19 Time of Encounter: 08:02 - Subjective Interval History: Patient seen and examined at bedside this morning. No acute complaints at this time. Notes that he is comfortable. Vitals hemodynamically stable. O2 saturation appropriate on 2-3 L via nasal cannula. Plan for left heart cath tomorrow. Otherwise denies any headache, blurry vision, chest pain, shortness of breath, palpitations, abdominal pain, nausea, vomiting. - Exam Vitals: Temp Pulse Resp BP Pulse Ox 97.9 F 55 16 111/48 90 03/29/19 07:10 03/29/19 07:10 03/29/19 07:10 03/29/19 07:10 03/29/19 07:10 Exam: GEN: This is a 68-year-old man resting comfortably at bedside . Vitals stable. No acute distress. AAOx3 HEENT: Atraumatic, Normocephalic, PERRLA, EOMI NECK: Supple, no lymphadenopathy, no JVD CARDIAC: RRR, s1 and s2 present, no murmurs, rubs, gallops PULM: Mild wheezing bilaterally. not in respiratory distress, no rales, crackles, rhonchi ABD: Soft, non-tender, non-distended, no guarding or rebound tenderness. Bowel sounds present EXT: No peripheral edema. No calf tenderness, cyanosis, clubbing NEURO: CN 2-12 grossly intact. No focal neurologic deficits. Follows commands PSYCH: Appropriate mood and affect - Assessment and Plan (1) NSTEMI (non-ST elevated myocardial infarction) Current Visit: Yes Status: Acute Assessment and Plan: Mr. Sepulveda is a 68 year old male with past medical history significant for CHF, CAD status post 4 stents, COPD, hypertension, hyperlipidemia who presents today complaining of substernal chest pain that began early this morning. - Pain was nonradiating, and associated with shortness of breath - History of 4 stents placed about 20 years ago; currently not on any antico agulation - Initial vitals in the ED were notable for significantly elevated blood pressure, respirations = 30 respiratory, initial oxygen saturation = 54%. Patient was immediately started on 15 L nonrebreather mask - Troponin = 2.063 - EKG = T wave inversions noted in lead 2 and 3 and aVF - BNP = 2925 - D-dimer = 2513 - Patient was given dose of aspirin and started on heparin drip - Repeat troponin = 0.87 => 0.68 => trending downward - Echocardiogram (03/27/19): LVEF = 65%. Mild left ventricular diastolic dysfunction. Normal right ventricle. Moderately dilated left atrium. Mild a ortic stenosis. Mild tricuspid regurgitation. Mild pulmonary hypertension. PLAN: - Cardiology is on board. Recommendations are appreciated - Per cardiology, plan for left heart catheterization tomorrow. Nothing by mouth after midnight. - Continue heparin drip - Continue home hypertension and hyperlipidemia medications - Continue to monitor for signs and symptoms of chest pain - Continuous cardiac monitoring, monitoring of O2 saturation, monitoring of vital signs - Cardiac diet (2) COPD exacerbation Current Visit: Yes Status: Acute Assessment and Plan: Patient has history of COPD - Pulmonary function tests done on 03/05/19 showed obstructive pattern - Additionally patient is an everyday smoker; states he attempted to quit 2 weeks ago, but notes that one week ago he smoked nearly a whole pack of cigarettes over 24 hours. - States that he does use an inhaler at home, but does not remember which - Otherwise is not on home oxygen - Initial presentation in the ED at [facility] emergency department, showed patient with O2 saturation = 54%. Patient was immediately started on 15 L nonrebreather mask. O2 saturation improved. - Patient additionally given 125 mg of Solu-Medrol and DuoNeb breathing treatment - Patient currently resting comfortably on 4 L oxygen via nasal cannula. O2 sats are appropriate. - Improving progress on exam today. Patient is stable on 2-3 L oxygen via nasal cannula. Continues to have wheezing on exam. PLAN: - We will continue with Solu-Medrol 40 mg twice a day - Continue DuoNeb's every 6 hours - Monitor O2 saturation; monitor for worsening respiratory distress - Continue with BiPAP when necessary and overnight - Encourage smoking cessation (3) Congestive heart failure Current Visit: Yes Status: Acute Assessment and Plan: Patient notes history of CHF - Has history of 2 MIs in the past status post 4 stents - No recent echocardiogram within our records. We will repeat echocardiogram - Notes bilateral lower extremity edema - BNP = 2925; Repeat = 594 this AM - Given dose of Lasix at [facility] ED - Echocardiogram (03/27/19): LVEF = 65%. Mild left ventricular diastolic dysfunction. Normal right ventricle. Moderately dilated left atrium. Mild aortic stenosis. Mild tricuspid regurgitation. Mild pulmonary hypertension. PLAN: - Cardiology on board. Appreciate recommendations - Continue Lasix 20 mg daily - Monitor urine output - Strict ins and outs - Daily weights - Low sodium, cardiac diet (4) Hypertension Current Visit: Yes Status: Acute Assessment and Plan: Patient has history of hypertension, managed with amlodipine and atenolol - BP is elevated on presentation - However heart rates continuing to be in the low 50s - Patient does state that he tends to have low heart rate - BP = 111/48 today PLAN: - We will continue home hypertension medications. - We will hold atenolol with heart rate less than 60 - Vasotec PRN (5) Hyperlipidemia Current Visit: Yes Status: Acute Assessment and Plan: History of hyperlipidemia - Cholesterol = 116 - Triglycerides = 62 - LDL = 67 - HDL = 37 PLAN: - Continue rosuvastatin 40 mg daily (6) Diabetes mellitus Current Visit: Yes Status: Acute Assessment and Plan: Patient denies ever been formally diagnosed with diabetes - Currently not on any medication - HbA1c = 6.8 - Blood sugar = 177 PLAN: - Given elevated sugars on presentation, we will initiate low-dose sliding scale - Accu-Cheks before meals and at bedtime - We will discuss starting by mouth medication at time of discharge (7) Tobacco abuse Current Visit: Yes Status: Acute Assessment and Plan: Patient is a daily smoker PLAN: - Encourage smoking cessation (8) DVT prophylaxis Current Visit: Yes Status: Acute Assessment and Plan: PLAN: - Currently on a heparin drip DVT Prophylaxis: Heparin drip - Time Spent with Patient Total time spent is greater than 50% in coordination of care (as documented) at patient's floor/unit and/or counseling patient: less than 15 minutes Plan of Care Discussed with: patient Internal Medicine: Result - Labs CBC & Chem 7: 03/29/19 05:03 03/29/19 05:03 Labs: Short CBC 03/29/19 Range/Units 05:03 WBC 14.1 H (4.3-11.1) K/mcL Hgb 15.8 (12.9-16.9) g/dL Hct 49.2 (37.5-50.1) % Plt Count 128 L (140-400) K/mcL Neutrophils # 12.7 H (1.6-8.9) K/mcL BMP 03/29/19 05:03 Sodium 137 Potassium 3.9 Chloride 95 L Carbon Dioxide 34 H BUN 24 H Creatinine 0.91 Glucose 177 H Calcium 8.7 - ABG Interpretation ABG results: PT/INR, D-dimer PT 12.1 Seconds (9.4-12.1) 03/26/19 16:31 - Impressions Impressions Echocardiogram 03/27/19 12:50 Impressions: LVEF 65%. Mild left ventricular diastolic dysfunction. Normal right ventricular structure and function. Moderately dilated left atrium. Mild aortic stenosis.Peak aortic velocity and mean gradient are 2.7m/s and 16 mmHg, respectively. Mild tricuspid regurgitation. Mild pulmonary hypertension.Estimated RVSP is 38 mmHg. Left Ventricular Wall Motion: Rest Echo Findings All wall segments showed normal motion. Findings: Study Quality * Technically adequate exam. ECG Findings * Normal sinus rhythm. Left Ventricle * LVEF 65%. * Normal LV chamber size, wall thickness and systolic function. * Mild left ventricular diastolic dysfunction. Right Ventricle * Normal right ventricular structure and function. Left Atrium * Moderately dilated left atrium. Right Atrium * Normal right atrial size. Aortic Valve * Mild aortic stenosis.Peak aortic velocity and mean gradient are 2.7m/s and 16 mmHg, respectively. * * No aortic regurgitation. Mitral Valve * Normal mitral valve structure. * No mitral regurgitation. * No mitral stenosis. Tricuspid Valve * Mild tricuspid regurgitation. * Mild pulmonary hypertension.Estimated RVSP is 38 mmHg. * * Estimated RA pressure is 5 mmHg. * No tricuspid stenosis. * Normal tricuspid valve structure. Pulmonic Valve * Pulmonic valve not well visualized. Aorta * Normally sized aortic root. Pericardium * The pericardium appears normal. Pulmonary Artery * Pulmonary artery not well visualized. IVC * Normal IVC dimensions and inspiratory collapse. Consult Discharge Plan - Plan Referrals: NONE,PCP [Primary Care Provider] - <Chrystal Pollock - Last Filed: 03/29/19 15:14> Hospitalist Progress Note - Encounter Date of Encounter: 03/29/19 - Exam Vitals: Temp Pulse Resp BP Pulse Ox 98.0 F 51 16 126/55 91 03/29/19 11:11 03/29/19 11:11 03/29/19 11:11 03/29/19 11:11 03/29/19 11:11 - Time Spent with Patient Total time spent is greater than 50% in coordination of care (as documented) at patient's floor/unit and/or counseling patient: Internal Medicine: Result - Labs CBC & Chem 7: 03/29/19 05:03 03/29/19 05:03 Labs: Short CBC 03/29/19 Range/Units 05:03 WBC 14.1 H (4.3-11.1) K/mcL Hgb 15.8 (12.9-16.9) g/dL Hct 49.2 (37.5-50.1) % Plt Count 128 L (140-400) K/mcL Neutrophils # 12.7 H (1.6-8.9) K/mcL BMP 03/29/19 05:03 Sodium 137 Potassium 3.9 Chloride 95 L Carbon Dioxide 34 H BUN 24 H Creatinine 0.91 Glucose 177 H Calcium 8.7 - ABG Interpretation ABG results: PT/INR, D-dimer PT 12.1 Seconds (9.4-12.1) 03/26/19 16:31 - Attending Attestation I examined this patient and my medical decision-making was reviewed with the Resident Physician. I agree with the documented findings, disposition and treatment plan as described except to the extent set forth below. <Rani Espino - Last Filed: 03/29/19 13:21> (3) Congestive heart failure Qualifiers: Heart failure type: diastolic Heart failure chronicity: acute on chronic Qualified Code(s): I50.33 - Acute on chronic diastolic (congestive) heart failure (4) Hypertension Qualifiers: Hypertension type: essential hypertension Qualified Code(s): I10 - Essential (primary) hypertension (5) Hyperlipidemia Qualifiers: Hyperlipidemia type: unspecified Qualified Code(s): E78.5 - Hyperlipidemia, unspecified (6) Diabetes mellitus Qualifiers: Diabetes mellitus type: type 2 Diabetes mellitus keno terminal operator insulin use: without detention use Diabetes mellitus complication status: without complication Qualified Code(s): E11.9 - Type 2 diabetes mellitus without complications
--- NOTE | 2019-03-29 08:32 | Cardiology Progress Note ---
Date of Encounter: 03/29/19 Time of Encounter: 08:30 Assessment and Plan (1) NSTEMI (non-ST elevated myocardial infarction) Current Visit: Yes Status: Acute Non-ST elevation myocardial infarction the setting of decompensated congestive heart failure and possible ischemia. Troponin peaked at 2.5 at out-side hospital and trending down. H/o CAD s/p CO and 4 cardiac stents placed at outside hospital >5 years ago. Similar presentation. EKG shows SR with nonspecific changes. TTE 03/27/19: LVEF 65%, mild LVDD, moderately dilated LA, mild , mild TR, mild PH, normal wall motion Continue heparin gtt, asa, statin, and BB. 12 hour tele: avg HR=55, HR low 50's upon exam. Will decrease BB to daily. Remains CP free. A/R/B of [facility] with possible PCI discussed, he is agreeable to proceed. NPO after MN tonight (except medications) Will continue to follow. (2) Congestive heart failure Current Visit: Yes Status: Acute Reports history of CHF. Presents with acute on chronic dCHF. BNP at OSH 2500. C/o abdominal bloating and orthopnea. TTE 03/27/19: LVEF 65%, mild LVDD, normal RV structure and function, moderately dilated LA, mild , mild TR, mild PH, normal wall motion. Dyspnea improved, no orthpnea described. Near euvolemic upon exam. Cumulative I&O: -700 mL Continue IV diuresis. Strict I&O and daily weights. Low sodium diet. Qualifiers: Heart failure type: diastolic Heart failure chronicity: acute on chronic Qualified Code(s): I50.33 - Acute on chronic diastolic (congestive) heart failure Discussion w patient/family: The assessment and plan as outlined above was discussed with the patient and/or family members who expressed understanding and agreement. All questions were answered. Thank you for involving us in the care of your patient. Please call with any questions. The patient will be discussed and reviewed with Dr. Mehta, changes to be made accordingly. Subjective Principal diagnosis: CHF, elevated troponin Interval history: Seen and examined. No chest pain overnight. Dyspnea improved. Results of TTE reviewed with patient. No complaints upon exam this AM. Objective Vital Signs, Last 4 Hours Temp Pulse Resp BP Pulse Ox 03/29/19 07:10 97.9 F 55 16 111/48 90 03/29/19 05:10 57 General: Conversant, No Apparent Distress HEENT: Atraumatic, Normocephaly, Mucus Membranes Moist Cardiac: No Murmur, Other (bradycardiac) Lungs: Other (expiratory wheezes throughout) Neuro: Alert and responsive Abdomen: Soft Skin: No rashes noted on visualized skin Musculoskeletal: No Chest Wall Tenderness Extremities: No Edema, Normal Pulses Results 03/29/19 05:03 03/29/19 05:03 Lab Results 03/29/19 03/29/19 05:03 05:03 WBC 14.1 H Hgb 15.8 Hct 49.2 Plt Count 128 L Sodium 137 Potassium 3.9 Chloride 95 L Carbon Dioxide 34 H BUN 24 H Creatinine 0.91 Glucose 177 H Calcium 8.7 Magnesium 2.1 Active Medications Albuterol/Ipratropium (Duoneb) 3 ml IH [id number] [facility] Stop: 09/25/19 22:01 Last Admin: 03/29/19 03:49 Dose: 3 ml Documented by: Alprazolam (Xanax) 1 mg PO TID PRN; Protocol PRN Reason: Anxiety Stop: 09/25/19 18:02 Last Admin: 03/28/19 23:36 Dose: 1 mg Documented by: Amlodipine Besylate (Norvasc) 10 mg PO DAILY MAX Stop: 09/26/19 09:01 Last Admin: 03/29/19 07:35 Dose: 10 mg Documented by: Aspirin (Aspirin Ec) 81 mg PO DAILY MAX Stop: 09/26/19 13:01 Last Admin: 03/29/19 07:35 Dose: 81 mg Documented by: Atenolol (Tenormin) 25 mg PO BID [facility] Stop: 09/26/19 21:01 Last Admin: 03/29/19 07:15 Dose: Not Given Documented by: Cilostazol (Pletal) 100 mg PO BID [facility] Stop: 09/25/19 21:01 Last Admin: 03/29/19 07:38 Dose: 100 mg Documented by: Dextrose/Water (Dextrose 50% (Syg)) 25 ml IVP AD PRN PRN Reason: Hypoglycemia Stop: 09/25/19 16:55 Enalaprilat (Vasotec) 0.625 mg IVP Q6H PRN PRN Reason: SEE COMMENTS Stop: 09/25/19 17:35 Furosemide (Lasix) 20 mg IVP DAILY MAX Stop: 09/28/19 09:01 Glucagon (Glucagen) 1 mg IM ONCE PRN PRN Reason: Hypoglycemia Stop: 09/25/19 16:55 Glucose (Gluctose) 15 gm PO ONCE PRN PRN Reason: Hypoglycemia Stop: 09/25/19 16:55 Glucose (Gluctose) 30 gm PO ONCE PRN PRN Reason: Hypoglycemia Stop: 09/25/19 16:55 Heparin Sodium (Porcine) (Heparin) 4,000 unit IVP Q6HR PRN PRN Reason: SEE COMMENTS Stop: 09/25/19 16:11 Heparin Sodium (Porcine) (Heparin) 2,000 unit IVP Q6H PRN PRN Reason: SEE COMMENTS Stop: 09/25/19 16:11 Last Admin: 03/29/19 05:54 Dose: 2,000 unit Documented by: Heparin Sodium/Dextrose (Heparin 25,000 Unit/250 Ml D5w) 25,000 unit in 250 mls @ 9.3 mls/hr IVC .Q24H MAX; Protocol Stop: 09/25/19 16:16 Last Titration: 03/29/19 05:50 Dose: 14.04 unit/kg/hr, 13.1 mls/hr Documented by: Dextrose (Dextrose 5%) 1,000 mls @ 100 mls/hr IVC .Q10H PRN PRN Reason: HYPOGLYCEMIA Stop: 09/25/19 16:55 Insulin Human Lispro (Humalog) 0 units SQ TIDAC [facility]; Protocol Stop: 09/26/19 07:31 Last Admin: 03/29/19 07:36 Dose: 4 units Documented by: Insulin Human Lispro (Humalog) 0 units SQ HS [facility]; Protocol Stop: 09/25/19 21:01 Last Admin: 03/28/19 20:09 Dose: 2 units Documented by: Methylprednisolone (Solu-Medrol) 40 mg IVP Q12HR MAX Stop: 09/25/19 18:01 Last Admin: 03/29/19 05:12 Dose: 40 mg Documented by: Naloxone HCl (Narcan) 0.4 mg IVP Q2MPRN PRN PRN Reason: SEE COMMENTS Stop: 09/25/19 17:20 Rosuvastatin Calcium (Crestor) 40 mg PO HS [facility] Stop: 09/26/19 21:01 Last Admin: 03/28/19 20:08 Dose: 40 mg Documented by: - Imaging and Cardiology Echo: report reviewed - EKG Interpretation EKG results cardiology: personally reviewed Consult Discharge Plan - Plan Referrals: NONE,PCP [Primary Care Provider] -
[2019-03-29] MEDS: Furosemide 40 MG/4 ML VIAL IVP SCH (08:53)
[2019-03-29] MEDS ORDERED: Furosemide 40 MG/4 ML VIAL IVP SCH (09:00)
[2019-03-29] MEDS: Heparin 25,000 UNIT/250 ML D5W 25,000 UNIT/250 ML IV.SOLN IVC SCH (17:16)
[2019-03-29] MEDS: ALPRAZolam 1 MG TABLET PO PRN (23:02)
[2019-03-30] MEDS: Ipratropium/Albuterol Neb 3 ML IH SCH ×4 (03:43→21:41)
[2019-03-30] MEDS: MethylPREDNISolone 40 MG/ML VIAL IVP SCH (05:39)
[2019-03-30] MEDS ORDERED: Heparin 1,000 UNITS/500 mL 500 ML ONE (07:30)
[2019-03-30] MEDS ORDERED: 0.9 % Sodium Chloride 1,000 ML ONE ×2 (07:30→12:31)
[2019-03-30] MEDS ORDERED: *HR* Heparin 10,000 UNIT/10 ML VIAL ONE (07:30)
[2019-03-30] MEDS ORDERED: Nitroglycerin 1,000 MCG/10 ML VIAL IV ONE (07:30)
[2019-03-30] MEDS ORDERED: ISOVUE-370 200 ML INFUS..BTL ONE (07:30)
[2019-03-30] MEDS: Insulin LISPRO 300 UNITS/3 ML VIAL SQ SCH ×4 (07:31→21:10)
[2019-03-30 07:54] LABS: Basophils % 0.1 %; Hematocrit 48.6 % (37.5-50.1); Hemoglobin 15.5 g/dL (12.9-16.9); Lymphocytes # 0.5 K/mcL (0.6-4.6); Lymphocytes % 4.6 %; Mean Corpuscular HGB Conc 31.9 g/dL (31.6-35.5); Mean Corpuscular Hemoglobin 29.3 pg (28.0-33.3); Mean Corpuscular Volume 91.9 fL (83.0-100.0); Mean Platelet Volume 11.3 fL (9.4-12.4); Monocytes # 0.7 K/mcL (0.0-1.3); Monocytes % 6.3 %; Neutrophils # 9.1 K/mcL (1.6-8.9); Platelet Count 128 K/mcL (140-400); Red Blood Count 5.29 M/mcL (4.19-5.50); Red Cell Distribution Width 14.5 % (11.5-14.5); White Blood Count 10.3 K/mcL (4.3-11.1)
[2019-03-30] MEDS ORDERED: *HR* Midazolam HCl 2 MG/2 ML VIAL ONE (08:04)
[2019-03-30] MEDS ORDERED: *HR* FentaNYL (PF) 100 MCG/2 ML VIAL ONE (08:04)
[2019-03-30 08:09] LABS: BUN/Creatinine Ratio 26 (6-26); Blood Urea Nitrogen 26 mg/dL (8-23); Calcium 8.7 mg/dL (8.6-10.3); Carbon Dioxide 38 mEq/L (23-29); Chloride 95 mEq/L (98-107); Glucose 266 mg/dL (70-105); Osmolality,Calculated 306 (280-300); Potassium 3.7 mEq/L (3.5-5.1); Sodium 141 mEq/L (136-145); eGFR For African Americans > 60 (> 60); eGFR For Non-African Americans > 60 (> 60)
--- NOTE | 2019-03-30 08:17 | Pre-Sedation Evaluation ---
Pre-sedation evaluation - Pre-sedation checklist Date of procedure: 03/30/19 Procedure: Heart Cath Recent Vitals: Last Vital Signs Temp 97.7 F 03/30/19 07:44 Pulse 77 03/30/19 07:44 Resp 17 03/30/19 07:44 BP 182/79 03/30/19 07:44 Pulse Ox 90 03/30/19 07:44 H&P (including ROS) documented in medical record: Yes Previous reaction to sedatives/anesthetics: No Dietary Status: NPO after Midnight ASA Classification *see protocol: CLASS II-Mild systemic disease Cardiac Registry (Cardio Only) - Functional Capacity Functional Capacity: >=4 METS with symptoms - Clincal Frailty Scale Clinical Frailty Scale: Managing Well
--- NOTE | 2019-03-30 08:37 | Internal Med Progress Note ---
<Rani Espino - Last Filed: 03/30/19 13:19> Hospitalist Progress Note - Encounter Date of Encounter: 03/30/19 Time of Encounter: 08:37 - Exam Vitals: Temp Pulse Resp BP Pulse Ox 97.7 F 77 17 182/79 90 03/30/19 07:44 03/30/19 07:44 03/30/19 07:44 03/30/19 07:44 03/30/19 07:44 - Assessment and Plan (1) NSTEMI (non-ST elevated myocardial infarction) Current Visit: Yes Status: Acute Assessment and Plan: Mr. Sepulveda is a 68 year old male with past medical history significant for CHF, CAD status post 4 stents, COPD, hypertension, hyperlipidemia who presents today complaining of substernal chest pain that began early this morning. - Pain was nonradiating, and associated with shortness of breath - History of 4 stents placed about 20 years ago; currently not on any anticoagulation - Initial vitals in the ED were notable for significantly elevated blood pressure, respirations = 30 respiratory, initial oxygen saturation = 54%. Patient was immediately started on 15 L nonrebreather mask - Troponin = 2.063 - EKG = T wave inversions noted in lead 2 and 3 and aVF - BNP = 2925 - D-dimer = 2513 - Patient was given dose of aspirin and started on heparin drip - Repeat troponin = 0.87 => 0.68 => trending downward - Echocardiogram (03/27/19): LVEF = 65%. Mild left ventricular diastolic dysfunction. Normal right ventricle. Moderately dilated left atrium. Mild aortic stenosis. Mild tricuspid regurgitation. Mild pulmonary hypertension. PLAN: - Cardiology is on board. Recommendations are appreciated - Per cardiology, plan for left heart catheterization tomorrow. Nothing by mouth after midnight. - Continue heparin drip - Continue home hypertension and hyperlipidemia medications - Continue to monitor for signs and symptoms of chest pain - Continuous cardiac monitoring, monitoring of O2 saturation, monitoring of vital signs - Cardiac diet (2) COPD exacerbation Current Visit: Yes Status: Acute Assessment and Plan: Patient has history of COPD - Pulmonary function tests done on 03/05/19 showed obstructive pattern - Additionally patient is an everyday smoker; states he attempted to quit 2 weeks ago, but notes that one week ago he smoked nearly a whole pack of ciga rettes over 24 hours. - States that he does use an inhaler at home, but does not remember which - Otherwise is not on home oxygen - Initial presentation in the ED at [facility] emergency department, showed patient with O2 saturation = 54%. Patient was immediately started on 15 L nonrebreather mask. O2 saturation improved. - Patient additionally given 125 mg of Solu-Medrol and DuoNeb breathing tr eatment - Patient currently resting comfortably on 4 L oxygen via nasal cannula. O2 sats are appropriate. - Improving progress on exam today. Patient is stable on 2-3 L oxygen via nasal cannula. Continues to have wheezing on exam. PLAN: - We will continue with Solu-Medrol 40 mg twice a day - Continue DuoNeb's every 6 hours - Monitor O2 saturation; monitor for worsening respiratory distress - Continue with BiPAP when necessary and overnight - Encourage smoking cessation (3) Congestive heart failure Current Visit: Yes Status: Acute Assessment and Plan: Patient notes history of CHF - Has history of 2 MIs in the past status post 4 stents - No recent echocardiogram within our records. We will repeat echocardiogram - Notes bilateral lower extremity edema - BNP = 2925; Repeat = 594 this AM - Given dose of Lasix at [facility] ED - Echocardiogram (03/27/19): LVEF = 65%. Mild left ventricular diastolic dysfunction. Normal right ventricle. Moderately dilated left atrium. Mild aortic stenosis. Mild tricuspid regurgitation. Mild pulmonary hypertension. PLAN: - Cardiology on board. Appreciate recommendations - Continue Lasix 20 mg daily - Monitor urine output - Strict ins and outs - Daily weights - Low sodium, cardiac diet (4) Hypertension Current Visit: Yes Status: Acute Assessment and Plan: Patient has history of hypertension, managed with amlodipine and atenolol - BP is elevated on presentation - However heart rates continuing to be in the low 50s - Patient does state that he tends to have low heart rate - BP = 111/48 today PLAN: - We will continue home hypertension medications. - We will hold atenolol with heart rate less than 60 - Vasotec PRN (5) Hyperlipidemia Current Visit: Yes Status: Acute Assessment and Plan: History of hyperlipidemia - Cholesterol = 116 - Triglycerides = 62 - LDL = 67 - HDL = 37 PLAN: - Continue rosuvastatin 40 mg daily (6) Diabetes mellitus Current Visit: Yes Status: Acute Assessment and Plan: Patient denies ever been formally diagnosed with diabetes - Currently not on any medication - HbA1c = 6.8 - Blood sugar = 177 PLAN: - Given elevated sugars on presentation, we will initiate low-dose sliding scale - Accu-Cheks before meals and at bedtime - We will discuss starting by mouth medication at time of discharge (7) Tobacco abuse Current Visit: Yes Status: Acute Assessment and Plan: Patient is a daily smoker PLAN: - Encourage smoking cessation (8) DVT prophylaxis Current Visit: Yes Status: Acute Assessment and Plan: PLAN: - Currently on a heparin drip DVT Prophylaxis: Heparin drip - Time Spent with Patient Total time spent is greater than 50% in coordination of care (as documented) at patient's floor/unit and/or counseling patient: Internal Medicine: Result - Labs CBC & Chem 7: 03/30/19 06:56 03/30/19 06:56 Labs: Short CBC 03/30/19 Range/Units 06:56 WBC 10.3 (4.3-11.1) K/mcL Hgb 15.5 (12.9-16.9) g/dL Hct 48.6 (37.5-50.1) % Plt Count 128 L (140-400) K/mcL Neutrophils # 9.1 H (1.6-8.9) K/mcL BMP 03/30/19 06:56 Sodium 141 Potassium 3.7 Chloride 95 L Carbon Dioxide 38 H BUN 26 H Creatinine 0.99 Glucose 266 H Calcium 8.7 - ABG Interpretation ABG results: PT/INR, D-dimer PT 12.1 Seconds (9.4-12.1) 03/26/19 16:31 Consult Discharge Plan - Plan Referrals: Nico Rudd DO [Partnered Physician] - 04/02/19 3:00 pm <Chrystal Pollock - Last Filed: 03/30/19 16:55> Hospitalist Progress Note - Encounter Date of Encounter: 03/30/19 - Subjective Interval History: Patient returned from [facility]. Back in room, doing well, states he is breathing fine without any sensation of SOB, denies CP. - Exam Vitals: Temp Pulse Resp BP Pulse Ox 98.2 F 55 18 132/56 91 03/30/19 16:30 03/30/19 16:30 03/30/19 16:30 03/30/19 16:30 03/30/19 16:30 Exam: Gen: NAD, AAO x3 Head: NC/AT ENT: MMM Neck: no lymphadenopathy CVS: RRR Lungs: fine rales at bases, good air exchange. Limited exam since patient is post [facility] cannot fully sit up. Abd: soft, nt/nd Groin: post [facility] site on R clean Ext: trace bipedal pitting edema - Time Spent with Patient Total time spent is greater than 50% in coordination of care (as documented) at patient's floor/unit and/or counseling patient: Internal Medicine: Result - Labs CBC & Chem 7: 03/30/19 06:56 03/30/19 06:56 Labs: Short CBC 03/30/19 Range/Units 06:56 WBC 10.3 (4.3-11.1) K/mcL Hgb 15.5 (12.9-16.9) g/dL Hct 48.6 (37.5-50.1) % Plt Count 128 L (140-400) K/mcL Neutrophils # 9.1 H (1.6-8.9) K/mcL BMP 03/30/19 06:56 Sodium 141 Potassium 3.7 Chloride 95 L Carbon Dioxide 38 H BUN 26 H Creatinine 0.99 Glucose 266 H Calcium 8.7 - ABG Interpretation ABG results: PT/INR, D-dimer PT 12.1 Seconds (9.4-12.1) 03/26/19 16:31 - Attending Attestation I examined this patient and my medical decision-making was reviewed with the Resident Physician. I agree with the documented findings, disposition and tr eatment plan as described except to the extent set forth below. NSTEMI: [facility] today, Cardiology recommendations appreciated. Currently on heparin drip. CHF: Significantly better. Diuresis as tolerated, monitor renal function. COPD: exacerbation improved, continue breathing treatments, steroids. Wean O2 as tolerated <Rani Espino - Last Filed: 03/30/19 13:19> (3) Congestive heart failure Qualifiers: Heart failure type: diastolic Heart failure chronicity: acute on chronic Qualified Code(s): I50.33 - Acute on chronic diastolic (congestive) heart yandel estrella (4) Hypertension Qualifiers: Hypertension type: essential hypertension Qualified Code(s): I10 - Essential (primary) hypertension (5) Hyperlipidemia Qualifiers: Hyperlipidemia type: unspecified Qualified Code(s): E78.5 - Hyperlipidemia, unspecified (6) Diabetes mellitus Qualifiers: Diabetes mellitus type: type 2 Diabetes mellitus intermediate insulin use: without intermediate use Diabetes mellitus complication status: without complication Qualified Code(s): E11.9 - Type 2 diabetes mellitus without complications
[2019-03-30] MEDS ORDERED: Tirofiban 12.5 MG/250ML 12.5 MG/250 ML BAG ONE (08:44)
[2019-03-30] MEDS ORDERED: *HR* Ticagrelor 90 MG TABLET ONE (09:01)
[2019-03-30] MEDS ORDERED: Furosemide 40 MG/4 ML VIAL ONE (09:09)
[2019-03-30] MEDS ORDERED: Tirofiban 12.5 MG/250ML 12.5 MG/250 ML BAG IVC SCH (09:15)
--- NOTE | 2019-03-30 09:31 | Invasive Diagnostic Lab Proc ---
Name: Nilton Sepulveda Date of Study: 03/30/2019 Date: 1950 Ht: 68.1in Medical Record#: [id number] Age: 68 Wt: 205.03lb Gender: Male BSA: 2.07 Order #: [id number] BMI: 31.07 Physicians Procedure Physician: Alex Downey MD Referring MD: Referring MD: Staff Name Position Time In Kaushik Small RN Education Research Analyst 08:04 AM Slava Carter RN Monitor 08:04 AM Olivia Cameron RT (R) Scrub 08:04 AM Ping Bustos RT (R) Scrub 08:04 AM Indications Indication Non-Stemi Procedures Performed Procedure L HRT ARTERY/VENTRICLE ANGIO IV Doppler BLD Flow 1st Vessel PRQ CARD EDWINA STENT W/ANGIO 1 VSL PRQ CARDIAC ANGIO ADDL ART Pre-Procedure Checklist Pt not NPO for procedure and MD aware. Blood Pressure: 138/67 Plan of Care Patient will tolerate the procedure without complications. Adequate level of comfort will be maintained. Hemodynamics will remain stable Patient will recover from procedure without complications. Respiratory function will be maintained. Cardiac rhythm will remain stable. Patient temperature will be maintained. Patient and/or family have verbalized understanding of the procedure. Patient Education Chief Complaint/Reason for Test: Cardiac Cath Developmental Category: Geriatric (65+ years) Developmentally Appropriate for Age: Yes Learning Barriers: None Education Needs: Procedure Education Method: Verbal Information Taught: Cardiac Cath Educational Evaluation: Able to repeat information Intravenous Access Time IV Size Location DC'd Fluid/Drip Rate Units RN 07:41 AM 20g 1 1/4" Patent On Arrival Lt Hand Allergies codeine Vital Signs Time BP (mmHg) HR (bpm) O2 Sat. RR (bpm) LOC 08:09 AM / % 5 = Fully awake and oriented or at pre-proc level 08:09 AM / % 4 = Oriented but drowsy 08:24 AM / % 4 = Oriented but drowsy 08:39 AM / % 4 = Oriented but drowsy 08:09 AM 191 / 79 70 89 % 20 08:12 AM 175 / 80 81 86 % 29 08:18 AM 165 / 78 76 88 % 20 08:23 AM 169 / 78 53 89 % 21 08:28 AM 162 / 80 72 90 % 21 08:32 AM 166 / 81 87 87 % 14 08:38 AM 180 / 78 82 88 % 22 08:42 AM 167 / 81 82 91 % 19 08:47 AM 166 / 90 84 89 % 23 08:52 AM 170 / 77 81 90 % 20 08:57 AM 153 / 81 77 93 % 16 09:02 AM 164 / 77 81 88 % 29 Procedural Medications Time Medication Dose Units Method Given By 08:09 AM Oxygen 6 L/min nasal cannula Kaushik Small RN 08:09 AM Versed 1 mg Intravenous Kaushik Small RN 08:09 AM Fentanyl 50 mcg Intravenous Kaushik Small RN 08:17 AM Oxygen 6 L/min Oxy Mask Kaushik Small RN 08:21 AM Lidocaine 2% 20 ml Subcutaneous Alex Downey MD 08:39 AM Heparin 4500 units Intravenous Kaushik Small RN 08:47 AM Aggrastat Bolus: 46 ml Intravenous Kaushik Small RN 08:47 AM Aggrastat 12.5mg/250ml 16.5 ml Intravenous Kaushik Small RN 08:59 AM Nitroglycerin 200 mcg Intracoronary Christina Downey MD 08:59 AM Nitroglycerin 200 mcg Intracoronary Christina Downey MD 09:03 AM Brilinta 180 mg Orally Kaushik Small RN 09:04 AM Lasix 20 mg Intravenous Kaushik Small RN ASA Classification: CLASS II- Mild systemic disease (i.e. well-controlled diabetes, hypertension, asthma, cigarette smoking) Lalo Score Preprocedure Postprocedure Activity 2- Moves 4 extremities sustained head lift Activity 2- Moves 4 extremities sustained head lift Circulation 2- SBP +/= 20 points of pre-anesthetic level Circulation 2- SBP +/= 20 points of pre-anesthetic level Consciousness 2- Awake and alert oriented x 3 Consciousness 2- Awake and alert oriented x 3 O2 Saturation 2- Able to maintain O2 satruation of 92% on room air O2 Saturation 2- Able to maintain O2 satruation of 92% on room air Respiratory 2- Able to deep breathe and cough well Respiratory 2- Able to deep breathe and cough well Total Score 10 Total Score 10 Contrast Agent: Isovue Diagnostic Contrast: 211 ml Total Contrast: 211 ml Fluoro Dose: 63 mGy Activated Clotting Time Time Seconds to Clot 08:39 AM 130 09:09 AM 151 Procedure Log Time Note Enter By 07:44 AM CathStat 08:04 AM Pt arrived to cleaning laborer 2 at 08:04 oumary 08:04 AM Kaushik Small RN Position: Education Research Analyst Time in: 08:04 [email or web address] 08:04 AM Slava Carter RN Position: Monitor Time in: 08:04 oumm 08:04 AM Olivia Cameron RT (R) Position: Scrub Time in: 08:04 [email or web address] 08:04 AM Ping Bustos RT (R) Position: Scrub Time in: 08:04 [email or web address] 08:04 AM Patient charges- Angio tray pack, Navilyst 3mm J, Pulse Oximetry and ACIST tubing and transducer [email or web address] 08:04 AM Case Delayed No [email or web address] 08:04 AM Physician arrived 08:04 mm 08:04 AM Meet and greet completed mm 08:04 AM Sign in performed according to hospital policy. Informed consent was obtained. oumm 08:04 AM Procedure start 08:04 oumm 08:06 AM Recorded ECG: HR=87 Condition=Condition 1 08:07 AM Vitals capture started with the following parameters, Patient=Adult, Interval=5 min, Initial Vwqalhya=582 mmHg, Deflation Rate=5 mmHg, Cuff placed on Left Arm 08:08 AM ASA Class CLASS II- Mild systemic disease (i.e. well-controlled diabetes, hypertension, asthma, cigarette smoking) cedwards 08:08 AM Hair removed from procedure site in procedure lab using clippers. Bilateral groin prepped with Chloraprep by Olivia Cameron (R), then patient was draped. Skin intact. cedwards 08:09 AM Time: 08:09 Oxygen on at 6 L/min per nasal cannula by Kaushik Small RN ced 08:09 AM Time: 08:09 Patient comfortable and pain free: Yes cedwards 08:09 AM Time: 08:09LOC: 5 = Fully awake and oriented or at pre-proc level cedwards 08:09 AM HR=70 bpm, BBLW=677/79 mmhg, SpO2=89.0 %, Resp=20 B/min, EtCO2=20 mmHg, Comment=NSR 08:09 AM Time: 08: Versed 1 mg Intravenous Given by Kaushik Small RN cedwards 08:10 AM Time: 08:09 Fentanyl 50 mcg Intravenous Given by [facility]aushik Small [facility] 08:12 AM HR=81 bpm, HHGV=545/80 mmhg, SpO2=86.0 %, Resp=29 B/min, EtCO2=26 mmHg, Comment=NSR 08:16 AM Clinical Presentation: Unstable angina ced 08:17 AM Time: 08:17 Oxygen on at 6 L/min per Oxy Mask by Kaushik Small RN ced 08:18 AM HR=76 bpm, VVWB=488/78 mmhg, SpO2=88.0 %, Resp=20 B/min, EtCO2=23 mmHg, Comment=NSR 08:20 AM Time out was performed according to hospital policy. Conscious sedation and anesthesia was achieved (see medication log with in this report above) cedwards 08:20 AM Pressure channel 1 zeroed. 08:21 AM Time: 08:21 20 ml Lidocaine 2% to right groin Subcutaneous Given by Alex Downey MD ced 08:21 AM Micro-Introducer Kit utilized for sheath placement cedwards 08:22 AM Access obtained by percutaneous puncture. 6Fr 10cm Terumo [place] sheath placed in right Femoral artery. [id number] cedwards 08:23 AM HR=53 bpm, RQUG=457/78 mmhg, SpO2=89.0 %, Resp=21 B/min, EtCO2=28 mmHg, Comment=NSR 08:23 AM 0.035 145cm Navilyst 3mmJ wire [id number] cedwards 08:24 AM 5Fr FR 4 catheter inserted over the wire [facility] ced 08:24 AM Time: 08:09LOC: 4 = Oriented but drowsy ced 08:24 AM Time: 08:09 Patient comfortable and pain free: Yes cedwards 08:24 AM Recorded Pressure: Ao, HR=70, Condition=Condition 1 (Aorta) Ao 154/70/104 08:25 AM RCA angiography performed in multiple views. cedwards 08:25 AM Lesion found in Mid RCA. Pre Stenosis: 100 Pre QUETA Flow: 0: No Flow/No perfusion cedwards 08:25 AM Catheter removed cedwards 08:26 AM 5Fr FL 4 catheter inserted over the wire [facility] cedwards 08:27 AM LCA angiography performed in multiple views. cedwards 08:28 AM HR=72 bpm, PQCO=035/80 mmhg, SpO2=90.0 %, Resp=21 B/min, Comment=NSR 08:29 AM Coronary Dominance: right cedwards 08:30 AM Recorded Pressure: Ao, HR=83, Condition=Condition 1 (Aorta) Ao 134/73/101 08:31 AM Catheter removed cedwards 08:32 AM HR=87 bpm, DUXS=677/81 mmhg, SpO2=87.0 %, Resp=14 B/min, Comment=NSR 08:33 AM Recorded Pressure: LV, HR=87, Condition=Condition 1 (Left Ventricle) LV 158/14/18 08:33 AM Recorded Pressure: LV, Ao, HR=85, Condition=Condition 1 (Left Ventricle) LV 161/11/18, (Aorta) Ao 158/73/111 08:34 AM Recorded Pressure: Ao, HR=83, Condition=Condition 1 (Aorta) Ao 151/74/107 08:37 AM 5Fr Pigtail catheter inserted over the wire [facility] cedwards 08:37 AM Catheter crossed the aortic valve and was selectively placed in the left ventricle. Pressures recorded on pullback for left heart catheterization. cedwards 08:37 AM Catheter removed cedwards 08:38 AM HR=82 bpm, BPNM=836/78 mmhg, SpO2=88.0 %, Resp=22 B/min, EtCO2=28 mmHg, Comment=NSR 08:39 AM At 08:39 the ACT was 130 seconds. cedwards 08:39 AM Time: 08:24 Patient comfortable and pain free: Yes cedwards 08:39 AM Time: 08:24LOC: 4 = Oriented but drowsy cedwards 08:39 AM Time: 08:39 Heparin 4500 units Intravenous Given by Kaushik Small RN cedwards 08:40 AM 6Fr XB LAD 3.5 Cordis guide catheter was used to cannulate the PCI vessel successfully. reused? No cedwards 08:41 AM .014 [employer] [place] 190cm guide wire across target lesion- successful. reused? No cedwards 08:42 AM Asist FFR Catheter advanced to target lesion. cedwards 08:42 AM HR=82 bpm, EJTS=685/81 mmhg, SpO2=91 %, Resp=19 B/min 08:43 AM Pressure channel 4 zeroed. 08:43 AM Pressure channel 1 zero failed. 08:44 AM Pressure channel 4 equalized to channel 1. 08:45 AM Pressure channel 4 equalized to channel 1. 08:45 AM Pressure channel 4 equalized to channel 1. 08:46 AM Recorded Pressure: Ao, PV1, HR=82, Condition=Condition 1 (Aorta) Ao 143/75/106, (Portal Vein) PV1 129/129/69 08:46 AM FFR: Value=0.56, Site=LAD Mid, Condition=Condition 1, Device=VOLCANO PRIME WIRE 08:46 AM Recorded Pressure: Ao, PV1, FFR=0.56, HR=80, Condition=Condition 1 (Aorta) Ao 144/79/109, (Portal Vein) PV1 127/126/67 08:47 AM Time: 08:47 Aggrastat Bolus: 46 ml Intravenous Given by Kaushik Small RN Martinez pump cedwards 08:47 AM Time: 08:47 Aggrastat 12.5mg/250ml 16.5 ml Intravenous Given by Kaushik Small RN Martinez pump cedwards 08:47 AM Lesion found in Mid LAD. Pre Stenosis: 70 Pre QUETA Flow: 3: Complete and Brisk Flow/Perfusion cedwards 08:47 AM HR=84 bpm, MZEB=202/90 mmhg, SpO2=89.0 %, Resp=23 B/min, EtCO2=22 mmHg, Comment=NSR 08:48 AM FFR Measurement: 0.56 cedwards 08:48 AM Inflation device was opened. cedwards 08:48 AM 2.0 mm x 20 mm Emerge Monorail balloon across target lesion- successful. reused? No cedwards 08:49 AM Balloon inflated @ 6 angela for 12 seconds cedwards 08:49 AM Balloon inflated @ 10 angela for 15 seconds cedwards 08:49 AM Balloon catheter removed intact. cedwards 08:52 AM Recorded Pressure: Ao, HR=83, Condition=Condition 1 (Aorta) Ao 160/80/116 08:52 AM Lesion found in 1st Diagonal. Pre Stenosis: 65 Pre QUETA Flow: 3: Complete and Brisk Flow/Perfusion cedwards 08:52 AM HR=81 bpm, RQRH=747/77 mmhg, SpO2=90.0 %, Resp=20 B/min 08:53 AM .014 [employer] [place] 190cm guide wire across target lesion- successful. reused? No, 2nd wire down Diag 1. cedwards 08:53 AM Balloon inflated @ 10 angela for 9 seconds cedwards 08:54 AM Time: 08:39LOC: 4 = Oriented but drowsy cedwards 08:54 AM Time: 08:39 Patient comfortable and pain free: Yes cedwards 08:55 AM 3.5mm x 32mm Synergy drug-eluting stent across target lesion- successful Lot #[id number] cedwards 08:57 AM Stent deployed @ 10 angela for 10 seconds cedwards 08:57 AM Stent balloon reinflated @ 16 angela for 12 seconds cedwards 08:57 AM HR=77 bpm, EWBR=386/81 mmhg, SpO2=93.0 %, Resp=16 B/min, Comment=NSR 08:59 AM Time: 08:59 Nitroglycerin 200 mcg Intracoronary Given by Christina Downey MD cedwards 08:59 AM Time: 08:59 Nitroglycerin 200 mcg Intracoronary Given by Christina Downey MD cedwards 09:00 AM Stent delivery system removed intact. cedwards 09:01 AM 3.5 mm x 20mm NC Emerge balloon across target lesion- successful. reused? No cedwards 09:02 AM Balloon inflated @ 16 angela for 7 seconds cedwards 09:02 AM HR=81 bpm, XDYF=362/77 mmhg, SpO2=88.0 %, Resp=29 B/min 09:03 AM Recorded Pressure: Ao, HR=86, Condition=Condition 1 (Aorta) Ao 116/68/91 09:03 AM Balloon inflated @ 20 angela for 12 seconds cedwards 09:03 AM Balloon catheter removed intact. cedwards 09:03 AM Time: 09:03 Brilinta 180 mg Orally Given by Kaushik Small RN cedwards 09:04 AM Time: 09:04 Lasix 20 mg Intravenous Given by Kaushik Small RN cedwards 09:05 AM Guide wires removed intact. cedwards 09:05 AM Guide catheter removed intact. cedwards 09:05 AM Procedure completed at 09:05 03/30/2019 cedwards 09:09 AM At 09:09 the ACT was 234 seconds. cedwards 09:09 AM Did you address QUETA flow and Dominance? YesCoronary Dominance: right cedwards 09:10 AM What is the NYHA Class? Class 3 cedwards 09:11 AM Sign out completed: Radiation Dose 575.26 mGy, 63.1 Gy/cm2 Fluoro Time: 9.5 Isovue 370 - 200ml contrast 211 ml given by Alex Downey MD. Complications: None. The patient was discharged out of the shop laborer in stable condition. Sedation minutes 61. Cardiac Rehab Consult needed: Yes. Confirmed administered medications: Yes cedwards 09:11 AM Isovue 370 - 200ml,2 Bottle(s) used. cedwards 09:12 AM Sheath left in place to be pulled on floor/holding areaV+Pad cedwards 09:12 AM Estimated Blood Loss: minimal cedwards 09:12 AM Post ECG NSR cedwards 09:12 AM Post Blood Pressure 167/92 cedwards 09:12 AM 09:12 Post Pulses Bilateral radial 2+ cedwards 09:12 AM Information taught Cardiac Cath, PCI, and IVUS/Flowire cedwards 09:13 AM 09:13 Post Pulses Bilateral DP & PT 1+ cedwards 09:13 AM Education needs Procedure, Plan of Care, and Disease Process cedwards 09:13 AM Learning barriers :None cedwards 09:13 AM Education Methods Verbal cedwards 09:13 AM Education evaluation Able to repeat information cedwards 09:13 AM Site status No bleeding/hematoma - Rt Groin as reported by Sites, Olivia RT (R) at 09:13 cedwards 09:13 AM Plavix, Effient or Brilinta given Yes cedwards 09:13 AM Family not available cedwards 09:13 AM Complications: None cedwards 09:15 AM Lesion found in Distal LMCA. Pre Stenosis: 20 Pre QUETA Flow: cedwards Complications Complication None None Hemodynamics Pressures Site Systolic/A Wave Diastolic/V Wave Mean AO 154 70 104 AO 134 73 101 LV 158 14 18 LV 161 11 18 AO 158 73 111 AO 151 74 107 AO 143 75 106 PV1 129 129 69 AO 144 79 109 PV1 127 126 67 AO 160 80 116 AO 116 68 91 Post Procedure Information Blood Pressure: 167/92 mmHg Rhythm: NSR Post procedural instructions were given Site Checks Time Location Status Staff Sheath In? Note 09:13 AM Rt Groin No bleeding/hematoma Sites, Olivia RT (R) Pulses Time Site Pre-Procedure Post-Procedure Note 03/30/2019 7:41:00 AM Bilateral radial 2+ 03/30/2019 7:41:00 AM Bilateral DP & PT 1+ 9:12:00 AM Bilateral radial 2+ 9:13:00 AM Bilateral DP & PT 1+ Updated by Cally Lopez RN on 03/30/2019 9:23:48 AM electronically signed on 03/30/2019 9:24:57 AM with status of Final
[2019-03-30] MEDS ORDERED: *HR* Atropine Sulfate 1 MG/10 ML SYRINGE ONE (12:27)
[2019-03-30] MEDS: amLODIPine 5 MG TABLET PO SCH (13:23)
[2019-03-30] MEDS: ALPRAZolam 1 MG TABLET PO PRN ×2 (13:23→23:14)
[2019-03-30] MEDS: Aspirin Enteric Coated 81 MG Tablet PO SCH (13:23)
[2019-03-30] MEDS: Furosemide 40 MG/4 ML VIAL IVP SCH (13:23)
[2019-03-30] MEDS: *HR* Ticagrelor 90 MG TABLET PO SCH (20:19)
[2019-03-31] MEDS: Ipratropium/Albuterol Neb 3 ML IH SCH ×4 (03:36→22:06)
[2019-03-31 05:11] LABS: Basophils % 0.2 %; Hematocrit 47.2 % (37.5-50.1); Hemoglobin 14.8 g/dL (12.9-16.9); Immature Granulocytes % 0.9 % (0-4); Lymphocytes # 0.7 K/mcL (0.6-4.6); Lymphocytes % 7.9 %; Mean Corpuscular HGB Conc 31.4 g/dL (31.6-35.5); Mean Corpuscular Hemoglobin 29.1 pg (28.0-33.3); Mean Corpuscular Volume 92.9 fL (83.0-100.0); Mean Platelet Volume 10.7 fL (9.4-12.4); Monocytes # 0.7 K/mcL (0.0-1.3); Monocytes % 7.8 %; Neutrophils # 7.7 K/mcL (1.6-8.9); Platelet Count 119 K/mcL (140-400); Red Blood Count 5.08 M/mcL (4.19-5.50); Red Cell Distribution Width 14.3 % (11.5-14.5); Segmented Neutrophils % 83.2 %; White Blood Count 9.2 K/mcL (4.3-11.1)
[2019-03-31 06:06] LABS: ABG Base Excess 10 mEq/L (-2 to 3); ABG HCO3 37 mEq/L (21-27); ABG Oxygen Saturation 88 % (95-98); ABG PCO2 56 mmHg (35-45); ABG PH 7.42 pH Units (7.32-7.45); ABG PO2 55 mmHg (85-104); ABG TCO2 39 mEq/L (20-26)
--- NOTE | 2019-03-31 08:27 | Internal Med Progress Note ---
Hospitalist Progress Note - Encounter Date of Encounter: 03/31/19 Time of Encounter: 08:24 - Exam Vitals: Temp Pulse Resp BP Pulse Ox 98.4 F 67 18 157/73 94 03/31/19 07:15 03/31/19 07:15 03/31/19 07:15 03/31/19 07:15 03/31/19 07:15 - Assessment and Plan (1) NSTEMI (non-ST elevated myocardial infarction) Current Visit: Yes Status: Acute Assessment and Plan: Mr. Sepulveda is a 68 year old male with past medical history significant for CHF, CAD status post 4 stents, COPD, hypertension, hyperlipidemia who presents today complaining of substernal chest pain that began early this morning. - Pain was nonradiating, and associated with shortness of breath - History of 4 stents placed about 20 years ago; currently not on any anticoagulation - Initial vitals in the ED were notable for significantly elevated blood pressure, respirations = 30 respiratory, initial oxygen saturation = 54%. Patient was immediately started on 15 L nonrebreather mask - Troponin = 2.063 - EKG = T wave inversions noted in lead 2 and 3 and aVF - BNP = 2925 - D-dimer = 2513 - Patient was given dose of aspirin and started on heparin drip - Repeat troponin = 0.87 => 0.68 => trending downward - Echocardiogram (03/27/19): LVEF = 65%. Mild left ventricular diastolic dysfunction. Normal right ventricle. Moderately dilated left atrium. Mild aortic stenosis. Mild tricuspid regurgitation. Mild pulmonary hypertension. PLAN: - Cardiology is on board. Recommendations are appreciated - Per cardiology, plan for left heart catheterization tomorrow. Nothing by mouth after midnight. - Continue heparin drip - Continue home hypertension and hyperlipidemia medications - Continue to monitor for signs and symptoms of chest pain - Continuous cardiac monitoring, monitoring of O2 saturation, monitoring of vital signs - Cardiac diet (2) COPD exacerbation Current Visit: Yes Status: Acute Assessment and Plan: Patient has history of COPD - Pulmonary function tests done on 03/05/19 showed obstructive pattern - Additionally patient is an everyday smoker; states he attempted to quit 2 weeks ago, but notes that one week ago he smoked nearly a whole pack of cigarettes over 24 hours. - States that he does use an inhaler at home, but does not remember which - Otherwise is not on home oxygen - Initial presentation in the ED at [facility] emergency department, showed patient with O2 saturation = 54%. Patient was immediately started on 15 L nonrebreather mask. O2 saturation improved. - Patient additionally given 125 mg of Solu-Medrol and DuoNeb breathing treatment - Patient currently resting comfortably on 4 L oxygen via nasal cannula. O2 sats are appropriate. - Improving progress on exam today. Patient is stable on 2-3 L oxygen via nasal cannula. Continues to have wheezing on exam. PLAN: - We will continue with Solu-Medrol 40 mg twice a day - Continue DuoNeb's every 6 hours - Monitor O2 saturation; monitor for worsening respiratory distress - Continue with BiPAP when necessary and overnight - Encourage smoking cessation (3) Congestive heart failure Current Visit: Yes Status: Acute Assessment and Plan: Patient notes history of CHF - Has history of 2 MIs in the past status post 4 stents - No recent echocardiogram within our records. We will repeat echocardiogram - Notes bilateral lower extremity edema - BNP = 2925; Repeat = 594 this AM - Given dose of Lasix at [facility] ED - Echocardiogram (03/27/19): LVEF = 65%. Mild left ventricular diastolic dysfunction. Normal right ventricle. Moderately dilated left atrium. Mild aortic stenosis. Mild tricuspid regurgitation. Mild pulmonary hypertension. PLAN: - Cardiology on board. Appreciate recommendations - Continue Lasix 20 mg daily - Monitor urine output - Strict ins and outs - Daily weights - Low sodium, cardiac diet (4) Hypertension Current Visit: Yes Status: Acute Assessment and Plan: Patient has history of hypertension, managed with amlodipine and atenolol - BP is elevated on presentation - However heart rates continuing to be in the low 50s - Patient does state that he tends to have low heart rate - BP = 111/48 today PLAN: - We will continue home hypertension medications. - We will hold atenolol with heart rate less than 60 - Vasotec PRN (5) Hyperlipidemia Current Visit: Yes Status: Acute Assessment and Plan: History of hyperlipidemia - Cholesterol = 116 - Triglycerides = 62 - LDL = 67 - HDL = 37 PLAN: - Continue rosuvastatin 40 mg daily (6) Diabetes mellitus Current Visit: Yes Status: Acute Assessment and Plan: Patient denies ever been formally diagnosed with diabetes - Currently not on any medication - HbA1c = 6.8 - Blood sugar = 177 PLAN: - Given elevated sugars on presentation, we will initiate low-dose sliding scale - Accu-Cheks before meals and at bedtime - We will discuss starting by mouth medication at time of discharge (7) Tobacco abuse Current Visit: Yes Status: Acute Assessment and Plan: Patient is a daily smoker PLAN: - Encourage smoking cessation (8) DVT prophylaxis Current Visit: Yes Status: Acute - Time Spent with Patient Total time spent is greater than 50% in coordination of care (as documented) at patient's floor/unit and/or counseling patient: Internal Medicine: Result - Labs CBC & Chem 7: 03/31/19 04:34 03/30/19 06:56 Labs: Short CBC 03/31/19 Range/Units 04:34 WBC 9.2 (4.3-11.1) K/mcL Hgb 14.8 (12.9-16.9) g/dL Hct 47.2 (37.5-50.1) % Plt Count 119 L (140-400) K/mcL Neutrophils # 7.7 (1.6-8.9) K/mcL - ABG Interpretation ABG results: ABG ABG pH 7.42 pH Units (7.32-7.45) 03/31/19 06:03 ABG pCO2 56 mmHg (35-45) H 03/31/19 06:03 ABG pO2 55 mmHg (85-104) L 03/31/19 06:03 ABG O2 Saturation 88 % (95-98) L 03/31/19 06:03 PT/INR, D-dimer PT 12.1 Seconds (9.4-12.1) 03/26/19 16:31 Consult Discharge Plan - Plan Referrals: Nico Rudd DO [Partnered Physician] - 04/02/19 3:00 pm (3) Congestive heart failure Qualifiers: Heart failure type: diastolic Heart failure chronicity: acute on chronic Qualified Code(s): I50.33 - Acute on chronic diastolic (congestive) heart failure (4) Hypertension Qualifiers: Hypertension type: essential hypertension Qualified Code(s): I10 - Essential (primary) hypertension (5) Hyperlipidemia Qualifiers: Hyperlipidemia type: unspecified Qualified Code(s): E78.5 - Hyperlipidemia, unspecified (6) Diabetes mellitus Qualifiers: Diabetes mellitus type: type 2 Diabetes mellitus chcf insulin use: without chcf use Diabetes mellitus complication status: without complication Qualified Code(s): E11.9 - Type 2 diabetes mellitus without complications
[2019-03-31] MEDS: Insulin LISPRO 300 UNITS/3 ML VIAL SQ SCH ×3 (08:30→17:41)
[2019-03-31] MEDS: amLODIPine 5 MG TABLET PO SCH (08:41)
[2019-03-31] MEDS: Furosemide 40 MG/4 ML VIAL IVP SCH (08:41)
[2019-03-31] MEDS: *HR* Ticagrelor 90 MG TABLET PO SCH ×2 (08:41→20:21)
[2019-03-31] MEDS: Aspirin Enteric Coated 81 MG Tablet PO SCH (08:43)
[2019-03-31] MEDS ORDERED: Aspirin 81 MG TAB.CHEW PO SCH (09:00)
[2019-03-31] MEDS ORDERED: predniSONE 20 MG TABLET PO SCH ×2 (09:00)
[2019-03-31 10:15] LABS: BUN/Creatinine Ratio 21 (6-26); Blood Urea Nitrogen 23 mg/dL (8-23); Calcium 8.7 mg/dL (8.6-10.3); Carbon Dioxide 36 mEq/L (23-29); Chloride 96 mEq/L (98-107); Glucose 202 mg/dL (70-105); Osmolality,Calculated 293 (280-300); Potassium 3.5 mEq/L (3.5-5.1); Sodium 137 mEq/L (136-145); eGFR For African Americans > 60 (> 60); eGFR For Non-African Americans > 60 (> 60)
--- NOTE | 2019-03-31 10:18 | Cardiology Progress Note ---
Date of Encounter: 03/31/19 Time of Encounter: 09:30 Assessment and Plan (1) NSTEMI (non-ST elevated myocardial infarction) Current Visit: Yes Status: Acute Non-ST elevation myocardial infarction the setting of decompensated congestive heart failure and possible ischemia. Troponin peaked at 2.5 at out-side hospital and trending down. H/o CAD s/p DC and 4 cardiac stents placed at outside hospital >5 years ago. Similar presentation. EKG shows SR with nonspecific changes. TTE 03/27/19: LVEF 65%, mild LVDD, moderately dilated LA, mild , mild TR, mild PH, normal wall motion LHC 03/30/19: s/p successful PCI with EDWINA to mLAD. Continue asa, statin, and BB. Recommend uninterrupted DAPT (asa + brilinta) for a minimum of 1 year following EDWINA, pt. verbalized understanding. Cardiac rehab. No further inpt. recommendations, Cardiology will sign-off. Will coordinate outpatient follow-up. (2) Congestive heart failure Current Visit: Yes Status: Acute Reports history of CHF. Presents with acute on chronic dCHF. BNP at OSH 2500. C/o abdominal bloating and orthopnea. TTE 03/27/19: LVEF 65%, mild LVDD, normal RV structure and function, moderately dilated LA, mild , mild TR, mild PH, normal wall motion. Dyspnea improved, no orthpnea described. Near euvolemic upon exam. Cumulative I&O: -700 mL Continue IV diuresis. Strict I&O and daily weights. Low sodium diet. Qualifiers: Heart failure type: diastolic Heart failure chronicity: acute on chronic Qualified Code(s): I50.33 - Acute on chronic diastolic (congestive) heart failure Discussion w patient/family: The assessment and plan as outlined above was discussed with the patient and/or family members who expressed understanding and agreement. All questions were answered. Thank you for involving us in the care of your patient. Please call with any questions. The patient will be discussed and reviewed with Dr. Castanon, changes to be made accordingly. Subjective Principal diagnosis: CHF, elevated troponin Interval history: Seen and examined. No complaints upon exam today. Mild tenderness at right groin cath site. Objective Vital Signs, Last 4 Hours Temp Pulse Resp BP Pulse Ox 03/31/19 08:59 60 03/31/19 07:15 98.4 F 67 18 157/73 94 General: Conversant, No Apparent Distress HEENT: Atraumatic, Normocephaly, Mucus Membranes Moist Cardiac: Reg Rate and Rhythm, Normal S1 and S2 Lungs: Normal Breath Sounds Neuro: Alert and responsive Abdomen: Soft Skin: No rashes noted on visualized skin Musculoskeletal: No Chest Wall Tenderness Extremities: No Edema, Normal Pulses Other: right groin: moderate amount of soft ecchymosis noted at site, no bleeding or hematoma at site. +2 DP/PT pulses. Results 03/31/19 04:34 03/31/19 09:24 Lab Results 03/31/19 03/31/19 04:34 09:24 WBC 9.2 Hgb 14.8 Hct 47.2 Plt Count 119 L Sodium 137 Potassium 3.5 Chloride 96 L Carbon Dioxide 36 H BUN 23 Creatinine 1.08 Glucose 202 H Calcium 8.7 Active Medications Albuterol/Ipratropium (Duoneb) 3 ml IH [id number] [facility] Stop: 09/25/19 22:01 Last Admin: 03/31/19 03:36 Dose: 3 ml Documented by: Alprazolam (Xanax) 1 mg PO TID PRN; Protocol PRN Reason: Anxiety Stop: 09/25/19 18:02 Last Admin: 03/30/19 23:14 Dose: 1 mg Documented by: Amlodipine Besylate (Norvasc) 10 mg PO DAILY [facility] Stop: 09/26/19 09:01 Last Admin: 03/31/19 08:41 Dose: 10 mg Documented by: Aspirin (Aspirin Ec) 81 mg PO DAILY [facility] Stop: 09/26/19 13:01 Last Admin: 03/31/19 08:43 Dose: Not Given Documented by: Aspirin (Aspirin) 81 mg PO DAILY [facility] Stop: 09/30/19 09:01 Last Admin: 03/31/19 08:41 Dose: 81 mg Documented by: Atenolol (Tenormin) 25 mg PO DAILY [facility] Stop: 09/28/19 09:01 Last Admin: 03/31/19 10:19 Dose: Not Given Documented by: Cilostazol (Pletal) 100 mg PO BID [facility] Stop: 09/25/19 21:01 Last Admin: 03/31/19 08:41 Dose: 100 mg Documented by: Dextrose/Water (Dextrose 50% (Syg)) 25 ml IVP AD PRN PRN Reason: Hypoglycemia Stop: 09/25/19 16:55 Furosemide (Lasix) 20 mg IVP DAILY [facility] Stop: 09/28/19 09:01 Last Admin: 03/31/19 08:41 Dose: 20 mg Documented by: Glucagon (Glucagen) 1 mg IM ONCE PRN PRN Reason: Hypoglycemia Stop: 09/25/19 16:55 Glucose (Gluctose) 15 gm PO ONCE PRN PRN Reason: Hypoglycemia Stop: 09/25/19 16:55 Glucose (Gluctose) 30 gm PO ONCE PRN PRN Reason: Hypoglycemia Stop: 09/25/19 16:55 Heparin Sodium (Porcine) (Heparin) 4,000 unit IVP Q6HR PRN PRN Reason: SEE COMMENTS Stop: 09/25/19 16:11 Heparin Sodium (Porcine) (Heparin) 2,000 unit IVP Q6H PRN PRN Reason: SEE COMMENTS Stop: 09/25/19 16:11 Last Admin: 03/29/19 05:54 Dose: 2,000 unit Documented by: Dextrose (Dextrose 5%) 1,000 mls @ 100 mls/hr IVC .Q10H PRN PRN Reason: HYPOGLYCEMIA Stop: 09/25/19 16:55 Insulin Human Lispro (Humalog) 0 units SQ TIDAC [facility]; Protocol Stop: 09/26/19 07:31 Last Admin: 03/31/19 08:30 Dose: Not Given Documented by: Insulin Human Lispro (Humalog) 0 units SQ HS [facility]; Protocol Stop: 09/25/19 21:01 Last Admin: 03/30/19 21:10 Dose: Not Given Documented by: Naloxone HCl (Narcan) 0.4 mg IVP Q2MPRN PRN PRN Reason: SEE COMMENTS Stop: 09/25/19 17:20 Prednisone (Prednisone) 40 mg PO DAILY [facility] Stop: 09/30/19 09:01 Last Admin: 03/31/19 08:41 Dose: 40 mg Documented by: Rosuvastatin Calcium (Crestor) 40 mg PO HS [facility] Stop: 09/26/19 21:01 Last Admin: 03/30/19 20:19 Dose: 40 mg Documented by: Ticagrelor (Brilinta) 90 mg PO BID [facility] Stop: 09/29/19 21:01 Last Admin: 03/31/19 08:41 Dose: 90 mg Documented by: - Imaging and Cardiology Echo: report reviewed Cardiac cath: report reviewed - EKG Interpretation EKG results cardiology: personally reviewed Consult Discharge Plan - Plan Referrals: Nico Rudd DO [Partnered Physician] - 04/02/19 3:00 pm
--- NOTE | 2019-03-31 11:08 | Discharge Summary ---
<Rani Espino - Last Filed: 03/31/19 17:33> - NOTES TO OUTPATIENT PROVIDER Notes to Outpatient Provider: - Patient underwent left heart catheterization. Patient had stent placed in mid LAD. We will continue aspirin, statin, beta twin. Additionally will be discharged with Brilinta. Per cardiology, they recommend aspirin + Brilinta for a minimum of 1 year. We will discontinue cilostazol since patient will be on dual antiplatelet therapy. Additionally patient will undergo cardiac rehabilitation. Follow up with cardiology outpatient. - Patient will be discharged home with home oxygen and BiPAP at night due to COPD exacerbation. Patient has completed 5 total days of prednisone. Wheezing is improved. Recommend further evaluation and management of COPD. - Recommended patient quit smoking. Patient may benefit from medication such as Chantix for smoking cessation. - Patient was also noted to be diabetic with A1c = 6.8. We will discharge patient home on metformin 500 mg daily. Further management per primary care physician. - Discussed management of anxiety with patient. Patient currently on Xanax 1 mg three times a day as needed. Patient may benefit from transition to SSRI for long-term management of anxiety. Orders not resulted at time of discharge: Pending orders 03/30/19 09:11 ECG 12 lead ECG [ECG] Routine ECG 12 lead ECG [ECG] Stat 03/31/19 07:00 ECG 12 lead ECG [ECG] Routine Date of Encounter: 03/31/19 Time of Encounter: 11:07 - Discharge Diagnosis (1) NSTEMI (non-ST elevated myocardial infarction) Priority: Primary Status: Acute (2) COPD exacerbation Priority: Secondary Status: Acute (3) Congestive heart failure Priority: Secondary Status: Acute Qualifiers: Heart failure type: diastolic Heart failure chronicity: acute on chronic Qualified Code(s): I50.33 - Acute on chronic diastolic (congestive) heart failure (4) Hypertension Priority: Secondary Status: Acute Qualifiers: Hypertension type: essential hypertension Qualified Code(s): I10 - Essential (primary) hypertension (5) Hyperlipidemia Priority: Secondary Status: Acute Qualifiers: Hyperlipidemia type: unspecified Qualified Code(s): E78.5 - Hyperlipidemia, unspecified (6) Diabetes mellitus Priority: Secondary Status: Acute Qualifiers: Diabetes mellitus type: type 2 Diabetes mellitus assisted insulin use: without termite treater helper use Diabetes mellitus complication status: without complication Qualified Code(s): E11.9 - Type 2 diabetes mellitus without complications (7) Tobacco abuse Priority: Secondary Status: Acute (8) DVT prophylaxis Priority: Secondary Status: Acute Hospital course: Mr. Sepulveda is a 68 year old male with past medical history significant for congestive heart failure, coronary artery disease status post 4 stents, COPD, hypertension, hyperlipidemia who initially presented complaining of substernal chest pain and shortness of breath which started early in the day on the day of presentation. Patient described pain as nonradiating, heavy. Initially in the ED, patient was noted to have tachypnea, and decreased oxygen saturation = 54%. He was immediately started on 15 L nonrebreather mask. Troponin noted to be elevated = 2.063. Patient was additionally noted to have BNP = 2925, and d- dimer = 2513. Repeat troponins were trending downward. Patient was given dose of aspirin and started on heparin drip, and given dose of Lasix. Echocardiogram showed LVEF = 65%, and described mild left ventricular diastolic dysfunction. Patient also noted to have COPD exacerbation. He was given 125 mg Solu-Medrol in the ED, and breathing treatment. Patient was then started on BiPAP and oxygen as needed. Cardiology evaluated patient, and determine left heart catheterization was warranted. However, given respiratory status, patient was treated for COPD exacerbation until respiratory status improved. Left heart catheterization was done yesterday, and stent was placed in the mid LAD. Additionally respiratory status improved, and patient was slowly weaned off steroids. At time of discharge, patient will be discharged with aspirin and Brilinta. Patient was on cilostazol for claudication of lower extremities. We will discuss continue cilostazol time, as patient is now on dual antiplatelet therapy. Additionally we will continue low-dose beta twin, statin, SHAGUFTA inhibitor, calcium channel twin. He will following up at the outpatient cardiology, and undergo cardiac rehabilitation. For patient's COPD, he showed improvement after treatment. However we will discharge patient home with BiPAP and home oxygen to be weaned off with improving respiratory status. Recommend starting maintenance medications for treatment of COPD. Also recommend cessation of smoking, and resources to do so. Of note, patient was noted to have hemoglobin A1c = 6.8%. Patient was treated with insulin inpatient, but was discharged home with metformin 500 mg daily. Recommend further outpatient management. Discharge discussed with: patient Time spent discussing smoking cessation with patient: 3 to 10 minutes - Time Spent with Patient Total time spent providing and/or coordinating discharge services: Time spent: Greater than 30 minutes, D/C greater than 8 hours after Admission - Discharge Medications Prescriptions: New Aspirin 81 mg PO DAILY 30 Days #30 tab.chew Ticagrelor [Brilinta] 90 mg PO BID 30 Days #60 tablet metFORMIN [Glucophage] 500 mg PO DAILY 30 Days #30 tablet Atenolol [Tenormin] 25 mg PO DAILY 30 Days #30 tablet Albuterol Sulfate [Ventolin Hfa] 18 gm IH Q6H PRN 30 Days #1 hfa.aer.ad PRN Reason: Bronchospasm Lancets/Blood Glucose Strips [Fora [id number] Strp-Lnct] 1 each MC BID 30 Days #60 combo..pkg Continued ALPRAZolam [Xanax 1 MG Tablet] 1 mg PO TID PRN PRN Reason: Anxiety Amlodipine Besylate 10 mg PO DAILY 30 Days #30 tablet Cilostazol [Pletal] 100 mg PO BID 30 Days #60 tablet Rosuvastatin Calcium 40 mg PO DAILY 30 Days #30 tablet Lisinopril [Zestril] 20 mg PO DAILY 30 Days #30 tablet Discontinued Atenolol [Tenormin] 50 mg PO BID Home Medications: ALPRAZolam [Xanax 1 MG Tablet] 1 mg PO TID PRN 03/26/19 [History] Albuterol Sulfate [Ventolin Hfa] 18 gm IH Q6H PRN 30 Days #1 hfa.aer.ad 03/31/19 [Rx] Amlodipine Besylate 10 mg PO DAILY 30 Days #30 tablet 03/31/19 [Rx] Aspirin 81 mg PO DAILY 30 Days #30 tab.chew 03/31/19 [Rx] Atenolol [Tenormin] 25 mg PO DAILY 30 Days #30 tablet 03/31/19 [Rx] Cilostazol [Pletal] 100 mg PO BID 30 Days #60 tablet 03/31/19 [Rx] Lancets/Blood Glucose Strips [Fora [id number] Strp-Lnct] 1 each MC BID 30 Days #60 combo..pkg 03/31/19 [Rx] Lisinopril [Zestril] 20 mg PO DAILY 30 Days #30 tablet 03/31/19 [Rx] Rosuvastatin Calcium 40 mg PO DAILY 30 Days #30 tablet 03/31/19 [Rx] Ticagrelor [Brilinta] 90 mg PO BID 30 Days #60 tablet 03/31/19 [Rx] metFORMIN [Glucophage] 500 mg PO DAILY 30 Days #30 tablet 03/31/19 [Rx] Allergies/Adverse Reactions: Allergy/AdvReac Type Severity Reaction Status Date / Time codeine Allergy Swelling Verified 03/26/19 17:13 of the Eye Date of admission: 03/26/19 13:53 Primary care physician: PCP NONE Consults: 03/28/19 11:59 Consult to Cardiac Rehabilitation-Phase1 [CONS] Routine Comment: Reason for Consult: NSTEMI Call Completed: No 03/30/19 09:11 Consult to Cardiac Rehabilitation-Phase1 [CONS] Routine Comment: Reason for Consult: AMI Call Completed: Yes Consult to Nurse Navigator [CONS] Routine Comment: Discharging clinician: Rani Espino Anticipated date of discharge: 03/31/19 - Constitutional Vitals: Temp Pulse Resp BP Pulse Ox 98.4 F 60 16 157/73 90 03/31/19 07:15 03/31/19 08:59 03/31/19 10:56 03/31/19 07:15 03/31/19 10:56 General appearance: Present: cooperative, A&O X 3, pleasant, obese, answers questions appropriately Exam: This is a pleasant 68-year-old male who is resting comfortably at bedside in no acute distress. Vitals are hemodynamically stable. - Head Head exam: Present: atraumatic, normal inspection, normocephalic - Eye Eye exam: Present: EOMI - ENT ENT exam: Present: mucous membranes moist, normal exam - Neck Neck exam general surgery: Present: full ROM, supple - Respiratory Respiratory exam: Present: wheezes (Improved, but continued wheezing bilaterally). Absent: decreased breath sounds, rhonchi, stridor, tachypnea - Cardiovascular Cardiovascular exam: Present: RRR, +S1, +S2 - GI/Abdominal GI/Abdominal exam: Present: normal bowel sounds, soft, no peritoneal signs. Absent: firm, guarding, rebound, rigid - Extremities Exam Extremities exam: Present: normal capillary refill, normal inspection, warm, radial pulses palpable and symmetrical. Absent: tenderness - Neurological Exam Neurological exam: Present: alert, normal gait, oriented X3, no focal deficits - Psychiatric Psychiatric exam: Present: normal affect, normal mood - Patient Status Disposition: Home, Self-Care Condition: Fair Functional capacity at discharge: independent ambulation Overall status at discharge: patient is progressing back to baseline - Discharge Instructions Instructions: Lisinopril (By mouth), Albuterol (By breathing), Aspirin (By mouth), Amlodipine (By mouth), Metformin (By mouth), Rosuvastatin (By mouth), Ticagrelor (By mouth), Heart Failure (DC), Left Heart Catheterization (DC), How to Check Your Blood Sugar (DC), Diabetes Mellitus Type 2 in Adults (DC), Chronic Obstructive Pulmonary Disease (DC), Cigarette Smoking and Your Health, Corporate Strategy Analyst (GEN) Follow Up With: Bina Iglesias CNP [Partnered Physician] - (CARDIOLOGY WILL CALL YOU WITH AN APPOINTMENT WITHING 1 WEEK. ) Nico Rudd DO [Partnered Physician] - 04/02/19 3:00 pm Additional Instructions: PLEASE WEAR YOUR BIPAP AT NIGHT AND OXYGEN DURING THE DAY. 2L AT REST AND 4L WITH EXERTION. PLEASE CHECK YOUR BLOOD SUGAR BEFORE BREAKFAST, LUNCH AND DINNER. KEEP A LOG AND TAKE WITH YOU TO YOUR FOLLOW UP APPOINTMENT. RISK FACTORS: STOP SMOKING: If you smoke, STOP. Smoking or tobacco use significantly increases your risk of vascular disease because nicotine causes the arteries to narrow or constrict. It also causes fats to stick to the artery. Your chances of having vascular problems are greatly increased if you continue to smoke. For more information, call the education line for smoking cessation 4-095-JGOIHZS EAT A LOW FAT/CHOLESTEROL/SODIUM DIET: This diet may help reduce your chances of having vascular problems. LIFTING: Avoid lifting anything more than 10 pounds for 5-7 days Prior to straining, laughing, sneezing and/or coughing, apply manual pressure directly over insertion site. ACTIVITY: You may walk or climb stairs as tolerated You can resume sexual activity as tolerated In general, you are encouraged to engage in physical activity, such as walking, 20 minutes twice a day. BATHING Do not submerge the site into water (bath tub, hot tub, swimming pool) for 1 week. This can be a source for infection into the blood stream. You may shower after 24 hours SITE CARE: After 24 hours, you may remove the dressing and leave the site open to air. Keep the site clean and dry. Clean gently and pat dry. You can expect bruising and tenderness that gradually resolve within a week or two. Return to work as instructed per your physician Resume driving as instructed per physician Keep all scheduled follow up appointments Resume medications as instructed IMPORTANT: If prescribed a Platelet Aggregation Inhibitor such as, Plavix, Brilinta or Effient: Duration of therapy is minimum 3 months These medications are often used in combination with Aspirin Never discontinue unless advised by your Vascular Surgeon. STROKE (CVA) Risk factors for a stroke are: Age, cigarette smoking, diabetes, excessive alcohol consumption, family history, high blood pressure, overweight, physical inactivity, prior stroke, heart attack, carotid artery disease or other artery disease. Warning signs: Sudden numbness or weakness of the face, arm or leg; especially on one side of the body, sudden confusion, trouble speaking or understanding, sudden trouble seeing in one eye, sudden trouble walking, dizziness, loss of balance or coordination, sudden severe headache with no cause. Call 911 or go to the Emergency Room. BLEEDING: Although the risk of bleeding is minimal, it can happen. If you have any bleeding from the site, apply firm pressure above the puncture site for 10-15 minutes. If the bleeding does not stop, continue manual pressure and call 911 Contact your physician if: You develop a fever greater than 101 degrees Fahrenheit Your site becomes reddened or has any drainage You have an increase in pain or burning at the site or if a large knot forms at the site. - Diet and Activity Activity: ambulate only with your walker, increase activity as tolerated, wear oxygen at all times Diet: diabetic diet, low fat, low cholesterol, low salt diet <Chrystal Pollock - Last Filed: 03/31/19 22:39> Orders not resulted at time of discharge: Pending orders 03/30/19 09:11 ECG 12 lead ECG [ECG] Stat 03/31/19 07:00 ECG 12 lead ECG [ECG] Routine Date of Encounter: 03/31/19 Hospital course: Mr. Sepulveda is a 68 year old male - Time Spent with Patient Total time spent providing and/or coordinating discharge services: Date of admission: 03/26/19 13:53 Primary care physician: PCP NONE Consults: 03/28/19 11:59 Consult to Cardiac Rehabilitation-Phase1 [CONS] Routine Comment: Reason for Consult: NSTEMI Call Completed: No 03/30/19 09:11 Consult to Cardiac Rehabilitation-Phase1 [CONS] Routine Comment: Reason for Consult: AMI Call Completed: Yes Consult to Nurse Navigator [CONS] Routine Comment: - Constitutional Vitals: Temp Pulse Resp BP Pulse Ox 97.9 F 72 18 153/68 96 03/31/19 16:07 03/31/19 16:07 03/31/19 16:07 03/31/19 16:07 03/31/19 16:07 - Attending Attestation I examined this patient and my medical decision-making was reviewed with the Resident Physician. I agree with the documented findings, disposition and treatment plan as described except to the extent set forth below. Discharge time 45 min.
[2019-03-31 16:09] VITALS: BP 153/68
== END 2019-03-31 20:30 | disposition home or self-care (01) | DRG 246 ==
LOC: ICNU 13:53 → SUATTDRO 13:53 → 2NNU 03-27 21:56
PROVIDERS: ADMIT Student in an Organized Health Care Education/Training Program; ATTEND Student in an Organized Health Care Education/Training Program